=== PATIENT | male | born 1945 | race Caucasian/White ===

== ENCOUNTER 2016-07-30 08:10 | Emergency (ER) | payer OTHER ==
[~2016-07-30 08:10] MED LIST: AMARYL1 MG PO; BAYER ASPIRIN E81 M1 PO; CALAN SR240 MG PO; CARDIZEM C2 PO; CARVEDILOL12.5 MG PO; CELEBREX200 MG PO; COMBIVENT RESPIMAT IN; CYMBALTA60 MG PO; ISOSORBIDE MONO60 MG PO; LISINOPRIL10 MG PO; METFORMIN HCL500 MG PO; METHADONE HCL5 MG PO; NICOTINE T21 MG/24 H TOP; NORCO1 TA1 PO; NORVASC5 MG PO; OMEPRAZOLE20 M1 PO; TEMAZEPAM30 MG PO; VERAPAMIL HCL180 M4 PO
--- NOTE | 2016-07-30 09:22 | DIAGNOSTIC IMAGING REPORT ---
PROCEDURE: XR CHEST 1 VIEW INDICATION: HPYERTENSION TECHNIQUE: Portable AP view 09:06 a.m. COMPARISON: Chest x-ray 03/20/2016 FINDINGS: Minor left basilar scarring. Heart and mediastinum are normal. Thorax is normal. IMPRESSION: 1. No acute changes 2. Minor left basilar scarring.
--- NOTE | 2016-07-30 11:44 | DIAGNOSTIC IMAGING REPORT ---
PROCEDURE: US VENOUS - LEFT EXT INDICATION: PAIN TECHNIQUE: Duplex sonography of the deep venous system in the left lower extremity was performed. Compression and augmentation techniques were used. COMPARISON: None. FINDINGS: Each interrogated segment of deep vein from the common femoral vein into the calf veins demonstrates normal compressibility, augmentation and/or color Doppler flow without filling defect. No evidence of significant soft-tissue edema, soft-tissue mass or cyst. IMPRESSION: 1. No deep venous thrombosis in the left lower extremity.
--- NOTE | 2016-07-30 13:39 | ED ORDER SUMMARY ---
..... Patient: LILIAM MONTESINOS OrderSheet [facility] VisitID: [id number] [address] [place] [address] 71y, M Registration Date/Time: 07/30/2016 ORDER SHEET Weight: 97.0 kg (stated) Allergies: Bees, PCN GENERAL ORDERS: Chest 1V Urgent (08:51 07/30/2016 Hood SAMUEL) (Ack 8:59 KHoerner) (9:06 KHoerner) Vp Patient (Continuous) (08:51 07/30/2016 Hood SAMUEL) (Ack 8:59 KHoerner) (9:17 Zachariah R.N.) CBC w Diff Urgent (08:07/30/2016 Hood SAMUEL) (Ack 8:59 KHoerner) (9:17 Zachariah R.N.) CMP Urgent (08:07/30/2016 Hood SAMUEL) (Ack 8:59 KHoerner) (9:17 Zachariah R.N.) UA-Culture if indicated Urgent (08:52 07/30/2016 Hood SAMUEL) (Ack 8:59 KHoerner) PT with INR Urgent (08:52 07/30/2016 Hood SAMUEL) (Ack 8:59 KHoerner) (9:17 Zachariah R.N.) PTT Urgent (08:07/30/2016 Hood SAMUEL) (Ack 8:59 KHoerner) (9:17 Zachariah R.N.) Amylase Urgent (08:07/30/2016 Hood SAMUEL) (Ack 8:59 KHoerner) (9:17 Zachariah R.N.) Lipase Urgent (08:52 07/30/2016 Hood SAMUEL) (Ack 8:58 KHoerner) (9:17 Zachariah R.N.) D-Dimer Urgent (08:52 07/30/2016 Hood SAMUEL) (Ack 8:59 KHoerner) (9:17 Zachariah R.N.) CPK Urgent (08:52 07/30/2016 Hood SAMUEL) (Ack 8:59 KHoerner) (9:17 Zachariah R.N.) Troponin-I Urgent (08:52 07/30/2016 Hood SAMUEL) (Ack 8:59 JHONNYoergaurav) (9:17 Zachariah R.N.) Pulse oximeter (08:52 07/30/2016 Hood SAMUEL) (Ack 8:59 JHONNYoergaurav) (9:17 Zachariah R.N.) Oxygen (2 L/min) (NC) (08:52 07/30/2016 Hood SAMUEL) (Ack 8:59 Oleksandr) (9:17 Zachariah R.N.) EKG - ER Stat (08:52 07/30/2016 Hood SAMUEL) (8:53 LTapper) US Venous Left (Elevated D dimer) Urgent (11:16 07/30/2016 Marcel Wong) (Ack 11:18 Oleksandr) MEDICATION ORDERS: IV FLUIDS: IV NS : initial bolus 500 mL (1000 mL/hr), then 125 mL/hr for 4h (NOW); Urgent (08:47 07/30/2016 Hood SAMUEL) (Ack 9:16 Zachariah R.N.) (9:50 Zachariah R.N.) Dilaudid IV 1 mg (HIGH ALERT MEDICATION, NOW) (08:48 07/30/2016 Hood SAMUEL) (Ack 9:16 Zachariah R.N.) (9:51 Zachariah R.N.) Zofran IV 4 mg (NOW) (08:48 07/30/2016 Hood SAMUEL) (Ack 9:16 Zachariah R.N.) (9:51 Zachariah R.N.) Metoprolol IV 2.5 mg (HIGH ALERT MEDICATION, NOW) (08:49 07/30/2016 Hood SAMUEL) (Ack 9:16 Zachariah R.N.) (9:52 Zahcariah R.N.) IV Saline Lock (08:52 07/30/2016 Hood SAMUEL) (9:17 Zachariah R.N.) Metoprolol IV 2.5 mg (HIGH ALERT MEDICATION, NOW) (11:16 07/30/2016 Marcel Wong) (11:37 Liam R.N.) Reglan IV 10 mg (NOW) (11:07/30/2016 Marcel Wong) (11:38 Liam Irwin) Hydralazine IV 20 mg (HIGH ALERT MEDICATION, NOW) (12:28 07/30/2016 Marcel Wong) (12:38 Liam Irwin) ORDER SHEET NOTES: [Electronically signed by Brian Saldana R.N. (14:05 07/30/2016)] [Electronically signed by Jose Beth Dr. (21:40 07/30/2016)] [Electronically locked/signed by Brian Saldana R.N. (14:05 07/30/2016)]
--- NOTE | 2016-07-30 13:39 | ED NURSING NOTES ---
Clinical Report - Nurses [facility] [address] [place] [address] 07/30/2016 8:12 [id number] Triage time 08:23. Acuity: LEVEL 3. Chief Complaint: HEADACHE and (back pain). Alert. AVELINO COMA SCORE: [place] Coma Scale: 15- eyes open spontaneously (4); best verbal response- oriented x 4 (5); best motor response- obeys commands (6). --08:35 Beverly Jeffries R.N. 08:23 07/30/16. BP: 179/105. HR: 95. RR: 13. O2 saturation: 96%. Temp: 98.3 F (oral). Pain level now: 02/16. --08:35 Beverly Jeffries R.N. Weight: 97 kg stated. Height/Length: 68 inches Per Patient. BMI: 32.5. --08:26 Beverly Jeffries R.N. Medications Isosorbide Mononitrate ER Oral (Tablet Extended Release 24 Hour 60 mg) 1 tablet, daily. --08:28 Beverly Jeffries R.N. Lisinopril Oral 20 mg, daily. --08:28 Beverly Jeffries R.N. Omeprazole Oral 20 mg, daily. --08:29 Beverly Jeffries R.N. Glipizide Oral (Tablet 5 mg) 1/2 tablet, daily. --08:30 Beverly Jeffries R.N. Hydrocodone-Acetaminophen Oral (out). --08:31 Beverly Jeffries R.N. Metoprolol Tartrate Oral (Tablet 50 mg) 1 tablet, bid (out). --08:31 Beverly Jeffries R.N. Diltiazem HCl ER Oral (Capsule Extended Release 24 Hour 240 mg) 1 capsule, daily (out). --08:32 Beverly Jeffries R.N. Medication/allergy information source: the patient's pill bottles. --08:35 Mervin, Beverly, R.N. Allergies Bees. PCN. --08:25 Beverly Jeffries R.N. History Arrived by private vehicle. Historian: patient. Accompanied by friend. Primary physician (none). This started about 3 days. SOCIAL HX: Heavy tobacco smoker- less than 1 pack per day. History of drug use: marijuana. No alcohol use. LEARNING NEEDS ASSESSMENT: The learning needs assessment revealed no barriers. FALL RISK ASSESSMENT: Fall risk assessment completed. Risk factors identified include patient age greater than 65 years and impairment of mobility. Fall interventions initiated. Patient placed on stretcher. Side rails up x2. Brakes on Bed in low position. FUNCTIONAL ASSESSMENT: Functional assessment performed: independent with the activities of daily living; mobility impairment present- this mobility impairment is an ongoing problem. --08:35 Beverly Jeffries R.N. PROBLEMS: Pneumonia. Renal Insufficiency. Abrasion(s). Pancreatitis. GI Disease. Back Pain. Diverticulitis. Cholecystitis. Migraine Headache. Tension-Type Headache. Chronic Headache. Laceration. Syncope. Fractured Metacarpal. Bronchitis. COPD - Chronic Obstructive Pulmonary Disease. Hepatitis. Abdominal Pain. Asthma. Diabetes Mellitus. Hypertension. Lupus. Tuberculosis. --08:26 eBverly Jeffries R.N. Hepatic Encephalopathy [RuleOut]. Sleep Apnea [RuleOut]. --08:26 Beverly Jeffries R.N. ADDITIONAL SURGERIES: Carpal Tunnel Surgery. Cyst on back. Fracture Repair. Hernia Repair. Previous Abdominal Surgery. Right index finger surgery. Umbilical Hernia Repair. --08:26 Beverly Jeffries R.N. Assessment GENERAL / NEURO / PSYCH: The patient is awake and alert, is oriented and cooperative and appears uncomfortable. He has poor eye contact. RESPIRATORY: Respirations not labored. SKIN: Skin is warm and dry. --08:35 Beverly Jeffries R.N. Interventions ID and allergy band on patient. To treatment room. --08:35 Beverly Jeffries R.N. PHYSICAL ASSESSMENT 08:49 07/30/16. Ambulatory to room. Patient gowned. GENERAL / NEURO / PSYCH: The patient is awake and alert, is oriented and cooperative and appears uncomfortable. He has good eye contact. RESPIRATORY: Respirations not labored. SKIN: Skin is warm and dry. --08:49 Beverly Jeffries R.N. NURSING PROGRESS NOTES 08:50 07/30/16. regional cra, pulse oximeter and NIBP monitor placed on patient. Patient gowned. Head of bed elevated. Call light placed in reach. Side rails up x 1. Bed placed in lowest position. Brakes of bed on. --08:50 Beverly Jeffries R.N. EKG time: (0835). EKG was ordered, performed by a tech and shown to the ED physician. --08:52 Laisha Dunn, FATUMA Tech1 09:02 07/30/2016 Site #1 started via IV in the right forearm with an 20g angiocath, with aseptic technique and good blood return; one attempt. Blood drawn: rainbow set. Labeled in the presence of the patient and sent to the lab. Saline lock flushed with 10 mL saline. --09:17 Beverly Jeffries R.N. 09:35 07/30/2016 Started bag #1 1000 mL IV Fluids IV NS (Saline); at 1000 mL/hr over 30 minute(s) via site #1 via IV pump. --09:50 Beverly Jeffries R.N. 09:41 07/30/2016 Zofran (Ondansetron HCl) IVP 4 mg given over 2 minute(s) via site #1. Allergies verified and confirmed 5 rights. IV patency established. IV site checked: no pain, redness, or swelling. IV flushed thoroughly pre- and post-medication administration. IVP given by RN. --09:51 Beverly Jeffries R.N. 09:41 07/30/2016 Dilaudid (HYDROmorphone HCl PF) IVP 1 mg given over 2 minute(s) via site #1. Allergies verified, confirmed 5 rights and sedative warning given to the patient. IV patency established. IV site checked: no pain, redness, or swelling. IV flushed thoroughly pre- and post-medication administration. IVP given by RN. --09:51 Beverly Jeffries R.N. 09:47 07/30/2016 Metoprolol (Metoprolol Tartrate) IVP 2.5 mg given over 5 minute(s) via site #1. Allergies verified and confirmed 5 rights. IV patency established. IV site checked: no pain, redness, or swelling. IV flushed thoroughly pre- and post-medication administration. IVP given by RN. --09:52 Beverly Jeffries R.N. 09:35 07/30/16. BP: 173/107. Pain level now: 02/16. --10:10 Beverly Jeffries R.N. 10:11 07/30/16. BP: 163/89. HR: 72. RR: 18. O2 saturation: 98% on nasal cannula at 2 liters/minute. Pain level now: 01/16. --10:13 Beverly Jeffries R.N. 10:13 07/30/16. Cardiac rhythm: sinus rhythm. Reassessment after fluids administered and medication administered. He is resting quietly. Overall patient status is improved- he states feels better. GENERAL / NEURO / PSYCH: Alert. Oriented X 4. RESPIRATORY: No respiratory distress. SKIN: Skin is warm and dry. --10:13 Beverly Jeffries R.N. 10:18 07/30/16. BP: 163/89. HR: 73. O2 saturation: 98%. --10:18 Brian Saldana R.N. 11:37 07/30/2016 Metoprolol (Metoprolol Tartrate) IVP 2.5 mg given over 5 minute(s) via site #1. Allergies verified and confirmed 5 rights. IV patency established. IV site checked: no pain, redness, or swelling. IV flushed thoroughly pre- and post-medication administration. IVP given by RN. --11:37 Brian Saldana R.N. 11:37 07/30/2016 Reglan (Metoclopramide HCl) IVP 10 mg given over 2 minute(s) via site #1. Allergies verified and confirmed 5 rights. IV patency established. IV site checked: no pain, redness, or swelling. IV flushed thoroughly pre- and post-medication administration. IVP given by RN. --11:38 Brian Saldana R.N. 11:48 07/30/16. BP: 184/96. --11:48 Brian Saldana R.N. 12:23 07/30/16. BP: 205/108. HR: 67. O2 saturation: 99%. --12:24 Brian Saldana R.N. 12:38 07/30/2016 Hydralazine IVP 20 mg given over 3 minute(s) via site #1. Allergies verified and confirmed 5 rights. IV patency established. IV site checked: no pain, redness, or swelling. IV flushed thoroughly pre- and post-medication administration. IVP given by RN. --12:38 Brian Saldana R.N. DISPOSITION / DISCHARGE 13:35 07/30/16. BP: 154/70. HR: 81. RR: 20. O2 saturation: 100%. Temp: 98.1 F. Pain level now 09/16. --13:35 Brian Saldana R.N. 13:49 07/30/2016 Site #1 removed upon discharge. Bandaid applied. --13:49 Brian Saldana R.N. No learning barriers present. Discharge instructions provided and reviewed with the patient. Reviewed warnings. Reviewed medication(s). Treatments reviewed. Reviewed referrals. Patient verbalized understanding. Written instructions provided in Thai. The patient was discharged by the physician. He was discharged home and accompanied by family. He left the Emergency Department ambulatory and via private vehicle. Family member driving. --13:49 Brian Saldana R.N. Departure time: 1345. --13:49 Brian Saldana R.N. Locked/Released at 07/30/2016 14:05 by Brian Saldana R.N.
--- NOTE | 2016-07-30 13:39 | ED NURSING NOTES ---
Clinical Report - Nurses [facility] [address] [place] [address] 07/30/2016 8:12 [id number] Triage time 08:23. Acuity: LEVEL 3. Chief Complaint: HEADACHE and (back pain). Alert. AVELINO COMA SCORE: [place] Coma Scale: 15- eyes open spontaneously (4); best verbal response- oriented x 4 (5); best motor response- obeys commands (6). --08:35 Beverly Jeffries R.N. 08:23 07/30/16. BP: 179/105. HR: 95. RR: 13. O2 saturation: 96%. Temp: 98.3 F (oral). Pain level now: 02/16. --08:35 Beverly Jeffries R.N. Weight: 97 kg stated. Height/Length: 68 inches Per Patient. BMI: 32.5. --08:26 Beverly Jeffries R.N. Medications Isosorbide Mononitrate ER Oral (Tablet Extended Release 24 Hour 60 mg) 1 tablet, daily. --08:28 Beverly Jeffries R.N. Lisinopril Oral 20 mg, daily. --08:28 Beverly Jeffries R.N. Omeprazole Oral 20 mg, daily. --08:29 Beverly Jeffries R.N. Glipizide Oral (Tablet 5 mg) 1/2 tablet, daily. --08:30 Beverly Jeffries R.N. Hydrocodone-Acetaminophen Oral (out). --08:31 Beverly Jeffries R.N. Metoprolol Tartrate Oral (Tablet 50 mg) 1 tablet, bid (out). --08:31 Beverly Jeffries R.N. Diltiazem HCl ER Oral (Capsule Extended Release 24 Hour 240 mg) 1 capsule, daily (out). --08:32 Beverly Jeffries R.N. Medication/allergy information source: the patient's pill bottles. --08:35 Mervin, Beverly, R.N. Allergies Bees. PCN. --08:25 Beverly Jeffries R.N. History Arrived by private vehicle. Historian: patient. Accompanied by friend. Primary physician (none). This started about 3 days. SOCIAL HX: Heavy tobacco smoker- less than 1 pack per day. History of drug use: marijuana. No alcohol use. LEARNING NEEDS ASSESSMENT: The learning needs assessment revealed no barriers. FALL RISK ASSESSMENT: Fall risk assessment completed. Risk factors identified include patient age greater than 65 years and impairment of mobility. Fall interventions initiated. Patient placed on stretcher. Side rails up x2. Brakes on Bed in low position. FUNCTIONAL ASSESSMENT: Functional assessment performed: independent with the activities of daily living; mobility impairment present- this mobility impairment is an ongoing problem. --08:35 Beverly Jeffries R.N. PROBLEMS: Pneumonia. Renal Insufficiency. Abrasion(s). Pancreatitis. GI Disease. Back Pain. Diverticulitis. Cholecystitis. Migraine Headache. Tension-Type Headache. Chronic Headache. Laceration. Syncope. Fractured Metacarpal. Bronchitis. COPD - Chronic Obstructive Pulmonary Disease. Hepatitis. Abdominal Pain. Asthma. Diabetes Mellitus. Hypertension. Lupus. Tuberculosis. --08:26 Beverly Jeffries R.N. Hepatic Encephalopathy [RuleOut]. Sleep Apnea [RuleOut]. --08:26 Beverly Jeffries R.N. ADDITIONAL SURGERIES: Carpal Tunnel Surgery. Cyst on back. Fracture Repair. Hernia Repair. Previous Abdominal Surgery. Right index finger surgery. Umbilical Hernia Repair. --08:26 Beverly Jeffries R.N. Assessment GENERAL / NEURO / PSYCH: The patient is awake and alert, is oriented and cooperative and appears uncomfortable. He has poor eye contact. RESPIRATORY: Respirations not labored. SKIN: Skin is warm and dry. --08:35 Beverly Jeffries R.N. Interventions ID and allergy band on patient. To treatment room. --08:35 Beverly Jeffries R.N. PHYSICAL ASSESSMENT 08:49 07/30/16. Ambulatory to room. Patient gowned. GENERAL / NEURO / PSYCH: The patient is awake and alert, is oriented and cooperative and appears uncomfortable. He has good eye contact. RESPIRATORY: Respirations not labored. SKIN: Skin is warm and dry. --08:49 Beverly Jeffries R.N. NURSING PROGRESS NOTES 08:50 07/30/16. laborer/grade check, pulse oximeter and NIBP monitor placed on patient. Patient gowned. Head of bed elevated. Call light placed in reach. Side rails up x 1. Bed placed in lowest position. Brakes of bed on. --08:50 Beverly Jeffries R.N. EKG time: (0835). EKG was ordered, performed by a tech and shown to the ED physician. --08:52 Laisha Dunn, FATUMA Tech1 09:02 07/30/2016 Site #1 started via IV in the right forearm with an 20g angiocath, with aseptic technique and good blood return; one attempt. Blood drawn: rainbow set. Labeled in the presence of the patient and sent to the lab. Saline lock flushed with 10 mL saline. --09:17 Beverly Jeffries R.N. 09:35 07/30/2016 Started bag #1 1000 mL IV Fluids IV NS (Saline); at 1000 mL/hr over 30 minute(s) via site #1 via IV pump. --09:50 Beverly Jeffries R.N. 09:41 07/30/2016 Zofran (Ondansetron HCl) IVP 4 mg given over 2 minute(s) via site #1. Allergies verified and confirmed 5 rights. IV patency established. IV site checked: no pain, redness, or swelling. IV flushed thoroughly pre- and post-medication administration. IVP given by RN. --09:51 Beverly Jeffries R.N. 09:41 07/30/2016 Dilaudid (HYDROmorphone HCl PF) IVP 1 mg given over 2 minute(s) via site #1. Allergies verified, confirmed 5 rights and sedative warning given to the patient. IV patency established. IV site checked: no pain, redness, or swelling. IV flushed thoroughly pre- and post-medication administration. IVP given by RN. --09:51 Beverly Jeffries R.N. 09:47 07/30/2016 Metoprolol (Metoprolol Tartrate) IVP 2.5 mg given over 5 minute(s) via site #1. Allergies verified and confirmed 5 rights. IV patency established. IV site checked: no pain, redness, or swelling. IV flushed thoroughly pre- and post-medication administration. IVP given by RN. --09:52 Beverly Jeffries R.N. 09:35 07/30/16. BP: 173/107. Pain level now: 02/16. --10:10 Beverly Jeffries R.N. 10:11 07/30/16. BP: 163/89. HR: 72. RR: 18. O2 saturation: 98% on nasal cannula at 2 liters/minute. Pain level now: 01/16. --10:13 Beverly Jeffries R.N. 10:13 07/30/16. Cardiac rhythm: sinus rhythm. Reassessment after fluids administered and medication administered. He is resting quietly. Overall patient status is improved- he states feels better. GENERAL / NEURO / PSYCH: Alert. Oriented X 4. RESPIRATORY: No respiratory distress. SKIN: Skin is warm and dry. --10:13 Beverly Jeffries R.N. 10:18 07/30/16. BP: 163/89. HR: 73. O2 saturation: 98%. --10:18 Brian Saldana R.N. 11:37 07/30/2016 Metoprolol (Metoprolol Tartrate) IVP 2.5 mg given over 5 minute(s) via site #1. Allergies verified and confirmed 5 rights. IV patency established. IV site checked: no pain, redness, or swelling. IV flushed thoroughly pre- and post-medication administration. IVP given by RN. --11:37 Brian Saldana R.N. 11:37 07/30/2016 Reglan (Metoclopramide HCl) IVP 10 mg given over 2 minute(s) via site #1. Allergies verified and confirmed 5 rights. IV patency established. IV site checked: no pain, redness, or swelling. IV flushed thoroughly pre- and post-medication administration. IVP given by RN. --11:38 Brian Saldana R.N. 11:48 07/30/16. BP: 184/96. --11:48 Brian Saldana R.N. 12:23 07/30/16. BP: 205/108. HR: 67. O2 saturation: 99%. --12:24 Brian Saldana R.N. 12:38 07/30/2016 Hydralazine IVP 20 mg given over 3 minute(s) via site #1. Allergies verified and confirmed 5 rights. IV patency established. IV site checked: no pain, redness, or swelling. IV flushed thoroughly pre- and post-medication administration. IVP given by RN. --12:38 Brian Saldana R.N. DISPOSITION / DISCHARGE 13:35 07/30/16. BP: 154/70. HR: 81. RR: 20. O2 saturation: 100%. Temp: 98.1 F. Pain level now 09/16. --13:35 Brian Saldana R.N. 13:49 07/30/2016 Site #1 removed upon discharge. Bandaid applied. --13:49 Brian Saldana R.N. No learning barriers present. Discharge instructions provided and reviewed with the patient. Reviewed warnings. Reviewed medication(s). Treatments reviewed. Reviewed referrals. Patient verbalized understanding. Written instructions provided in Upper Sorbian. The patient was discharged by the physician. He was discharged home and accompanied by family. He left the Emergency Department ambulatory and via private vehicle. Family member driving. --13:49 Brian Saldana R.N. Departure time: 1345. --13:49 Brian Saldana R.N. Locked/Released at 07/30/2016 14:05 by Brian Saldana R.N.
--- NOTE | 2016-07-30 13:39 | ED ORDER SUMMARY ---
..... Patient: LILIAM MONTESINOS OrderSheet [facility] VisitID: [id number] [address] [place] [address] 71y, M Registration Date/Time: 07/30/2016 ORDER SHEET Weight: 97.0 kg (stated) Allergies: Bees, PCN GENERAL ORDERS: Chest 1V Urgent (08:51 07/30/2016 Hood SAMUEL) (Ack 8:59 KHoerner) (9:06 KHoerner) Insurance Solicitor (Continuous) (08:51 07/30/2016 Hood SAMUEL) (Ack 8:59 KHoerner) (9:17 Zachariah R.N.) CBC w Diff Urgent (08:07/30/2016 Hood SAMUEL) (Ack 8:59 KHoerner) (9:17 Zachariah R.N.) CMP Urgent (08:07/30/2016 Hood SAMUEL) (Ack 8:59 KHoerner) (9:17 Zachariah R.N.) UA-Culture if indicated Urgent (08:52 07/30/2016 Hood SAMUEL) (Ack 8:59 KHoerner) PT with INR Urgent (08:52 07/30/2016 Hood SAMUEL) (Ack 8:59 KHoerner) (9:17 Zachariah R.N.) PTT Urgent (08:07/30/2016 Hood SAMUEL) (Ack 8:59 KHoerner) (9:17 Zachariah R.N.) Amylase Urgent (08:07/30/2016 Hood SAMUEL) (Ack 8:59 KHoerner) (9:17 Zachariah R.N.) Lipase Urgent (08:52 07/30/2016 Hood SAMUEL) (Ack 8:58 KHoerner) (9:17 Zachariah R.N.) D-Dimer Urgent (08:52 07/30/2016 Hood SAMUEL) (Ack 8:59 KHoerner) (9:17 Zachariah R.N.) CPK Urgent (08:52 07/30/2016 Hood SAMUEL) (Ack 8:59 KHoerner) (9:17 Zachariah R.N.) Troponin-I Urgent (08:52 07/30/2016 Hood SAMUEL) (Ack 8:59 JHONNYoergaurav) (9:17 Zachariah R.N.) Pulse oximeter (08:52 07/30/2016 Hood SAMUEL) (Ack 8:59 JHONNYoergaurav) (9:17 Zachariah R.N.) Oxygen (2 L/min) (NC) (08:52 07/30/2016 Hood SAMUEL) (Ack 8:59 Oleksandr) (9:17 Zachariah R.N.) EKG - ER Stat (08:52 07/30/2016 Hood SAMUEL) (8:53 LTapper) US Venous Left (Elevated D dimer) Urgent (11:16 07/30/2016 Marcel Wong) (Ack 11:18 Oleksandr) MEDICATION ORDERS: IV FLUIDS: IV NS : initial bolus 500 mL (1000 mL/hr), then 125 mL/hr for 4h (NOW); Urgent (08:47 07/30/2016 Hood SAMUEL) (Ack 9:16 Zachariah R.N.) (9:50 Zachariah R.N.) Dilaudid IV 1 mg (HIGH ALERT MEDICATION, NOW) (08:48 07/30/2016 Hood SAMUEL) (Ack 9:16 Zachariah R.N.) (9:51 Zachariah R.N.) Zofran IV 4 mg (NOW) (08:48 07/30/2016 Hood SAMUEL) (Ack 9:16 Zachariah R.N.) (9:51 Zachariah R.N.) Metoprolol IV 2.5 mg (HIGH ALERT MEDICATION, NOW) (08:49 07/30/2016 Hood SAMUEL) (Ack 9:16 Zachariah R.N.) (9:52 Zachariah R.N.) IV Saline Lock (08:52 07/30/2016 Hood SAMUEL) (9:17 Zachariah R.N.) Metoprolol IV 2.5 mg (HIGH ALERT MEDICATION, NOW) (11:16 07/30/2016 Marcel Wong) (11:37 Liam R.N.) Reglan IV 10 mg (NOW) (11:07/30/2016 Marcel Wong) (11:38 Liam Irwin) Hydralazine IV 20 mg (HIGH ALERT MEDICATION, NOW) (12:28 07/30/2016 Marcel Wong) (12:38 Liam Irwin) ORDER SHEET NOTES: [Electronically signed by Brian Saldana R.N. (14:05 07/30/2016)] [Electronically signed by Jose Beth Dr. (21:40 07/30/2016)] [Electronically locked/signed by Brian Saldana R.N. (14:05 07/30/2016)]
--- NOTE | 2016-07-30 13:39 | ED CLINICAL REPORT ---
Clinical Report - Physicians/Mid Levels [facility] [address] [place] [address] 07/30/2016 8:12 Patient: LILIAM MONTESINOS [facility]#: [id number] Time Seen: 08:43. Arrived- By private vehicle. Historian- patient. HISTORY OF PRESENT ILLNESS Is still present. Chief Complaint: HEADACHE. This started several days ago. It has been intermittent and waxing/waning. Onset during light activity. It is described as throbbing. Quality described as unlike previous headaches. Located in the frontal region. No neck pain. Not located in the facial region. At its maximum, severity described as 10 / 10. When seen in the E.D., severity described as 10 / 10. Modifying factors: worsened by bright light; relieved by nothing. There were preceding symptoms. He has had blurred vision in the right eye and left eye. The blurred vision involving the right eye has been mild. The blurred vision involving the left eye has been mild. He has had photophobia. No associated nausea, numbness, weakness or vomiting. (Out of HTN meds for weeks). Similar symptoms previously: Many times. Recent medical care: Not recently seen/assessed. REVIEW OF SYSTEMS The patient has had tinnitus (chronically). He has had lower back pain with radiation to the left leg. he has had 1 month of L thigh pain and tenderness. All systems otherwise negative, except as recorded above. PAST HISTORY Pneumonia. Renal Insufficiency. Abrasion(s). Pancreatitis. GI Disease. Back Pain. Diverticulitis. Cholecystitis. Migraine Headache. Tension-Type Headache. Chronic Headache. Laceration. Syncope. Fractured Metacarpal. Bronchitis. COPD - Chronic Obstructive Pulmonary Disease. Hepatitis. Abdominal Pain. Asthma. Diabetes Mellitus. Hypertension. Lupus. Tuberculosis. --08: Beverly Jeffries R.N. Hepatic Encephalopathy [RuleOut]. Sleep Apnea [RuleOut]. --08: Beverly Jeffries R.N. ADDITIONAL SURGERIES: Carpal Tunnel Surgery. Cyst on back. Fracture Repair. Hernia Repair. Previous Abdominal Surgery. Right index finger surgery. Umbilical Hernia Repair. Medications: Diltiazem HCl ER Oral (Capsule Extended Release 24 Hour 240 mg) 1 capsule, daily (out). Metoprolol Tartrate Oral (Tablet 50 mg) 1 tablet, bid (out). Hydrocodone-Acetaminophen Oral (out). Glipizide Oral (Tablet 5 mg) 1/2 tablet, daily. Omeprazole Oral 20 mg, daily. Lisinopril Oral 20 mg, daily. Isosorbide Mononitrate ER Oral (Tablet Extended Release 24 Hour 60 mg) 1 tablet, daily. Allergies: Bees. PCN. SOCIAL HISTORY Current every day heavy tobacco smoker (cigarette)- less than 1 pack per day. Occasional alcohol use. History of occasional drug use: marijuana. FAMILY HISTORY Cancer in first-degree relative (mother and father). ADDITIONAL NOTES The nursing notes have been reviewed. PHYSICAL EXAM Vital Signs: 07/30/2016 08:23 BP: 179/105. HR: 95. RR: 13. O2 saturation: 96%. Temp: 98.3 F. Pain level now: 9/10. Have been reviewed. Appearance: Alert. Eyes: Pupils equal, round and reactive to light. Eyes normal inspection. No abnormal funduscopic findings. ENT: Pharynx normal. Neck: Normal inspection. Neck supple. No meningeal signs or carotid bruit. CVS: Normal heart rate and rhythm. Heart sounds normal. Respiratory: No respiratory distress. Decreased air movement. Abdomen: Soft and nontender. No organomegaly. Back: Normal inspection. Skin: Skin warm and dry. Normal skin color. Normal skin turgor. Extremities: Extremities exhibit normal ROM. No calf tenderness. No lower extremity edema. (L femoral region tenderness). Neuro: Alert. No cerebellar findings. No motor deficit. No sensory deficit. LABS, X-RAYS, AND EKG EKG: Rate: 103. Right axis deviation. Changes present when compared to prior EKG. (01 Feb 2016). The study has been independently viewed by me. Chest X-ray: No acute disease. Normal heart size. Mediastinum normal. Great vessels normal. No infiltrate. Views: AP. Technique: good. The X-rays were independently viewed by me and interpreted contemporaneously by me. Prior films were not available for comparison. Lower Extremity Sonography: Negative exam. No compression abnormality noted. . No deep venous thrombosis in the left lower extremity. The exam was performed by a bone density technician. The study was interpreted by the radiologist and discussed with the radiologist. Prior studies were not available for comparison. Laboratory Tests: CBC w Diff: (RENÉ: 07/30/2016 08:40) ( MsgRcvd 07/30/2016 09:02) Final results Test Result Flag Units (Reference) WHITE BLOOD COUNT 10.8 K/uL (4.5-11.5) RED BLOOD COUNT 4.83 M/uL (4.50-5.90) HEMOGLOBIN 13.5 gm/dL (13.5-17.5) HEMATOCRIT 40.4 L % (41.0-53.0) MEAN CELL VOLUME 84 fL (80-100) MEAN CORPUSCULAR HGB 28 pg (26-34) MEAN CORPUSCULAR HGB CONC 33 g/dL (31-37) RED CELL DISTRIBUTION WIDTH 14.2 % (11.6-14.8) PLATELET COUNT 312 K/uL (150-400) NEUTROPHIL % 57.6 % (50-75) LYMPH % 27.6 % (25-40) MONO % 13.4 % (3-14) EOSINOPHIL % 0.9 % (0-4) BASOPHIL % 0.5 % (0-2) PT with INR: (RENÉ: 07/30/2016 08:40) ( MsgRcvd 07/30/2016 09:11) Final results Test Result Flag Units (Reference) INR 1.0 (0.8-1.2) Low Intensity Therapy: INR 1.5-2.0 PT range 18.5-23.1Mod.Intensity Therapy: INR 2.0-3.0 PT range 23.1-31.5High Intensity Therapy: INR 2.5-3.5 PT range 27.4-35.5High Intensity Therapy 2: INR 3.0-4.0 PT range 31.5-39.3 APTT 30 SECONDS (24-34) D-DIMER QUANTITATIVE 0.55 H ug/mLFEU (0.27-0.52) The primary value of this quantitative assay relates toits negative predictive value (i.e. exclusion) of pulmonaryembolism/deep vein thrombosis/DIC.Elevated levels of d-dimer may also occur with:, age, cancer, inflammation, liver disease,post-op, infection, hematoma, coronary disease, peripheralarteriopathy, bleeding disorders and thrombolytic treatment.Results should be correlated with other clinical andradiological data.Testing Methodology: Latex Immunoassay CMP: (RENÉ: 07/30/2016 08:40) ( MsgRcvd 07/30/2016 09:14) Final results Test Result Flag Units (Reference) GLUCOSE 102 mg/dL (70-110) BUN 55 H mg/dL (7-18) CREATININE 2.1 H mg/dL (0.6-1.3) Estimated GFR 33.45 mL/min Estimated GFR- 40.54 mL/min Note: Persistent reduction over 3 months in eGFR<60 mL/min/1.73 m2 defines CKD. Patients with eGFR values>=60 mL/min/1.73 m2 may also have CKD if evidence ofpersistent proteinuria. Additional information may be foundat [email or web address].org. SODIUM 140 mmol/L (136-145) POTASSIUM 4.3 mmol/L (3.5-5.1) CHLORIDE 106 mmol/L (98-107) CARBON DIOXIDE 22 mmol/L (21-32) CALCIUM 9.2 mg/dL (8.5-10.1) TOTAL PROTEIN 7.7 g/dL (6.4-8.2) ALBUMIN 2.7 L g/dL (3.3-5.0) BILIRUBIN, TOTAL 0.4 mg/dL (0.0-1.0) ALKALINE PHOSPHATASE 94 U/L (46-116) AST (SGOT) 29 U/L (15-37) ALT (SGPT) 49 U/L (12-78) LIPASE 297 U/L (73-393) AMYLASE 93 U/L (25-115) CPK 42 U/L (24-260) TROPONIN I <0.05 ng/mL (0.00-1.5) TROPONIN REFERENCE RANGE:<0.1 NEGATIVE0.1-1.5 INDETERMINANT>1.5 POSITIVE . PROGRESS AND PROCEDURES Course of Care: 09:04 07/30/16. case was discussed with Dr. Bteh at change of shift we reviewed the patient's history and examination findings as well a the result of his EKG. Dr. Beth will follow up on his pending studies, continue to manage his care and will arrange an appropriate disposition for him. - MW Hydralazine 20 mg IVP given. Reglan 10 mg IVP given. Physical exam findings are improved. Symptoms much better. Disposition: Discharged home in good and improved condition. Condition: good. CLINICAL IMPRESSION Hypertensive headache Muscle strain of the left quadriceps. Essential hypertension. INSTRUCTIONS Avoid alcohol and NSAIDS. Examples of NSAIDS include aspirin, ibuprofen (Advil) and naproxen (Aleve). Avoid salty foods. Follow a low salt diet. Your Current Medications: CONTINUE TAKING THE FOLLOWING MEDICATIONS: Diltiazem HCl ER Oral : Capsule Extended Release 24 Hour 240 mg, 1 capsule daily, out. Glipizide Oral : Tablet 5 mg, 1/2 tablet daily. Hydrocodone-Acetaminophen Oral : out. Isosorbide Mononitrate ER Oral : Tablet Extended Release 24 Hour 60 mg, 1 tablet daily. Lisinopril Oral : 20 mg daily. Metoprolol Tartrate Oral : Tablet 50 mg, 1 tablet bid, out. Omeprazole Oral : 20 mg daily. Prescription Medications: Isosorbide Mononitrate ER 60 mg: take 1 tablet orally every 24 hours. Dispense fifteen (15). No refills. Tramadol 50 mg: take 1 orally every 6 hours as needed for pain and stiffness. Do not take more than 8 tablets in a 24 hour period. Dispense twenty (20). No refills. Diltiazem 240 mg: take 1 orally every 24 hours. Dispense fifteen (15). No refills. Glipizide 5 mg: take 1 orally every 24 hours. Dispense fifteen (15). No refills. Follow-up: Blood pressure screening was not performed during this visit because the patient has an active diagnosis of hypertension. The patient should follow up with a primary care provider for blood pressure management. Follow-up with: [facility], [facility], , [address] [place] [address], [address] [place] [address] Follow up in about two days. Call for an appointment. (Electronically signed by Jose Beth Dr. 07/30/2016 21:40)
--- NOTE | 2016-07-30 21:41 | ED MED RECONCILIATION SUMMARY ---
Patient: LILIAM MONTESINOS Medication Reconciliation Report [facility] VisitID: [id number] [place] [address] 71y, M Registration Date/Time: 07/30/2016 Weight: 97.0 kg Height/Length: 68 in. BMI: 32.5 ALLERGIES: Bees, PCN The patient's Home Medications are listed below: CONTINUE TAKING THE FOLLOWING MEDICATIONS: Diltiazem HCl ER Oral (240 mg) 1 capsule, daily, out Glipizide Oral (5 mg) 1/2 tablet, daily Hydrocodone-Acetaminophen Oral, out Isosorbide Mononitrate ER Oral (60 mg) 1 tablet, daily Lisinopril Oral 20 mg, daily Metoprolol Tartrate Oral (50 mg) 1 tablet, bid, out Omeprazole Oral 20 mg, daily The source(s) of the original Home Medication information: patient's pill bottles The following Medications were given to the patient in the Emergency Department: IV NS IV Fluids bolus 0, then 1000 mL/hr, administered: 07/30/2016 9:35:00 AM Zofran [IVP] IVP 4 mg, administered: 07/30/2016 9:41:00 AM Dilaudid [IVP] IVP 1 mg, administered: 07/30/2016 9:41:00 AM Metoprolol [IVP] IVP 2.5 mg, administered: 07/30/2016 9:47:00 AM Metoprolol [IVP] IVP 2.5 mg, administered: 07/30/2016 11:37:00 AM Reglan [IVP] IVP 10 mg, administered: 07/30/2016 11:37:00 AM Hydralazine [IVP] IVP 20 mg, administered: 07/30/2016 12:38:00 PM The following Medications were prescribed to the patient: Isosorbide Mononitrate ER 60 mg: take 1 tablet orally every 24 hours. Dispense fifteen (15). No refills. -- Jose Beth Dr. Tramadol 50 mg: take 1 orally every 6 hours as needed for pain and stiffness. Do not take more than 8 tablets in a 24 hour period. Dispense twenty (20). No refills. -- Jose Beth Dr. Diltiazem 240 mg: take 1 orally every 24 hours. Dispense fifteen (15). No refills. -- Jose Beth Dr. Glipizide 5 mg: take 1 orally every 24 hours. Dispense fifteen (15). No refills. -- Jose Beth Dr.
--- NOTE | 2016-07-30 21:41 | ED MAR SUMMARY ---
..... Medication Administration Record [facility] [address] [place] [address] Patient: LILIAM MONTESINOS Visit ID: [id number] 71y, M Weight: 97.0 kg Height/Length: 68 in BMI: 32.5 ALLERGIES: Bees, PCN Start 09:35 07/30/2016 Beverly Jeffries R.N. Medication Administered: IV NS (SALINE), Dose: IV Fluids over 30 minute(s), Rate: 1000 mL/hr, Dispensed: 1000 mL bag, Site: #1 right forearm. Medication Ordered: IV NS : initial bolus 500 mL (1000 mL/hr), then 125 mL/hr for 4h (NOW); Urgent. Given 09:07/30/2016 Beverly Jeffries R.N. Medication Administered: DILAUDID [IVP] (HYDROMORPHONE HCL PF), Dose: 1 mg IVP over 2 minute(s), Site: #1 right forearm. Medication Ordered: Dilaudid IV 1 mg (HIGH ALERT MEDICATION, NOW). Given :07/30/2016 Beverly Jeffries R.N. Medication Administered: ZOFRAN [IVP] (ONDANSETRON HCL), Dose: 4 mg IVP over 2 minute(s), Site: #1 right forearm. Medication Ordered: Zofran IV 4 mg (NOW). Given 09:07/30/2016 Beverly Jeffries R.N. Medication Administered: METOPROLOL [IVP] (METOPROLOL TARTRATE), Dose: 2.5 mg IVP over 5 minute(s), Site: #1 right forearm. Medication Ordered: Metoprolol IV 2.5 mg (HIGH ALERT MEDICATION, NOW). Given :07/30/2016 Brian Saldana R.N. Medication Administered: METOPROLOL [IVP] (METOPROLOL TARTRATE), Dose: 2.5 mg IVP over 5 minute(s), Site: #1 right forearm. Medication Ordered: Metoprolol IV 2.5 mg (HIGH ALERT MEDICATION, NOW). Given 07/30/2016 Brian Saldana R.N. Medication Administered: REGLAN [IVP] (METOCLOPRAMIDE HCL), Dose: 10 mg IVP over 2 minute(s), Site: #1 right forearm. Medication Ordered: Reglan IV 10 mg (NOW). Given 12:38 07/30/2016 Brian Saldana R.N. Medication Administered: HYDRALAZINE [IVP], Dose: 20 mg IVP over 3 minute(s), Site: #1 right forearm. Medication Ordered: Hydralazine IV 20 mg (HIGH ALERT MEDICATION, NOW).
--- NOTE | 2016-07-30 21:41 | ED MAR SUMMARY ---
..... Medication Administration Record [facility] [address] [place] [address] Patient: LILIAM MONTESINOS Visit ID: [id number] 71y, M Weight: 97.0 kg Height/Length: 68 in BMI: 32.5 ALLERGIES: Bees, PCN Start 09:35 07/30/2016 Beverly Jeffries R.N. Medication Administered: IV NS (SALINE), Dose: IV Fluids over 30 minute(s), Rate: 1000 mL/hr, Dispensed: 1000 mL bag, Site: #1 right forearm. Medication Ordered: IV NS : initial bolus 500 mL (1000 mL/hr), then 125 mL/hr for 4h (NOW); Urgent. Given 09:07/30/2016 Beverly Jeffries R.N. Medication Administered: DILAUDID [IVP] (HYDROMORPHONE HCL PF), Dose: 1 mg IVP over 2 minute(s), Site: #1 right forearm. Medication Ordered: Dilaudid IV 1 mg (HIGH ALERT MEDICATION, NOW). Given :07/30/2016 Beverly Jeffries R.N. Medication Administered: ZOFRAN [IVP] (ONDANSETRON HCL), Dose: 4 mg IVP over 2 minute(s), Site: #1 right forearm. Medication Ordered: Zofran IV 4 mg (NOW). Given 09:07/30/2016 Beverly Jeffries R.N. Medication Administered: METOPROLOL [IVP] (METOPROLOL TARTRATE), Dose: 2.5 mg IVP over 5 minute(s), Site: #1 right forearm. Medication Ordered: Metoprolol IV 2.5 mg (HIGH ALERT MEDICATION, NOW). Given :07/30/2016 Brian Saldana R.N. Medication Administered: METOPROLOL [IVP] (METOPROLOL TARTRATE), Dose: 2.5 mg IVP over 5 minute(s), Site: #1 right forearm. Medication Ordered: Metoprolol IV 2.5 mg (HIGH ALERT MEDICATION, NOW). Given 07/30/2016 Brian Saldana R.N. Medication Administered: REGLAN [IVP] (METOCLOPRAMIDE HCL), Dose: 10 mg IVP over 2 minute(s), Site: #1 right forearm. Medication Ordered: Reglan IV 10 mg (NOW). Given 12:38 07/30/2016 Brian Saldana R.N. Medication Administered: HYDRALAZINE [IVP], Dose: 20 mg IVP over 3 minute(s), Site: #1 right forearm. Medication Ordered: Hydralazine IV 20 mg (HIGH ALERT MEDICATION, NOW).
--- NOTE | 2016-07-30 21:41 | ED DISCHARGE INSTRUCTIONS ---
Patient: LILIAM MONTESINOS General Instructions [facility] VisitID: [id number] [place] [address] 71y, M Registration Date/Time: 07/30/2016 Hypertensive headache Muscle strain of the left quadriceps. Essential hypertension. INSTRUCTIONS Avoid alcohol and NSAIDS. Examples of NSAIDS include aspirin, ibuprofen (Advil) and naproxen (Aleve). Avoid salty foods. Follow a low salt diet. Your Current Medications: CONTINUE TAKING THE FOLLOWING MEDICATIONS: Diltiazem HCl ER Oral : Capsule Extended Release 24 Hour 240 mg, 1 capsule daily, out. Glipizide Oral : Tablet 5 mg, 1/2 tablet daily. Hydrocodone-Acetaminophen Oral : out. Isosorbide Mononitrate ER Oral : Tablet Extended Release 24 Hour 60 mg, 1 tablet daily. Lisinopril Oral : 20 mg daily. Metoprolol Tartrate Oral : Tablet 50 mg, 1 tablet bid, out. Omeprazole Oral : 20 mg daily. Prescription Medications: Isosorbide Mononitrate ER 60 mg: take 1 tablet orally every 24 hours. Dispense fifteen (15). No refills. Tramadol 50 mg: take 1 orally every 6 hours as needed for pain and stiffness. Do not take more than 8 tablets in a 24 hour period. Dispense twenty (20). No refills. Diltiazem 240 mg: take 1 orally every 24 hours. Dispense fifteen (15). No refills. Glipizide 5 mg: take 1 orally every 24 hours. Dispense fifteen (15). No refills. Follow-up: Blood pressure screening was not performed during this visit because the patient has an active diagnosis of hypertension. The patient should follow up with a primary care provider for blood pressure management. Follow-up with: [facility], Family Practice, , [address] [place] [address], [id number], [place] [id number] Follow up in about two days. Call for an appointment. ADDITIONAL INFORMATION Hypertension, Out Of Control (Established) Your blood pressure was unusually high today. This can occur as a result of missing doses of your blood pressure medicine. Some asthma inhalers, decongestants, diet pills, and street drugs such as cocaine and amphetamine can worsen hypertension. An increase in body weight, increase in salt intake, smoking, and caffeine are other causes. Emotional upset or acute pain can cause a sudden rapid rise in blood pressure which may return to normal after a period of rest. A normal blood pressure is less than 140/90. The first (top) number is the systolic pressure. The second (bottom) number is the diastolic pressure. Hypertension exists when either the top number is 140 or higher, OR the bottom number is 90 or higher on repeated measurements. Home Care: All patients with high blood pressure should do the following to lower their pressure. If you are on blood pressure medicines, then these methods may reduce or eliminate your need for medicines in the future. Begin a weight-loss program if you are overweight. Reduce your salt intake. Avoid high-salt foods (olives, pickles, smoked meats, salted potato chips, etc.). Do not add salt to your food at the table. Use only small amounts of salt when cooking. Begin an exercise program. Discuss with your doctor what type of exercise program would be best for you. It doesnt have to be difficult. Even brisk walking for 20 minutes3 times a week is a good form of exercise. Avoid medicines which contain heart stimulants. This includes many cold and sinus decongestant pills and sprays as well as diet pills. Check the warnings about hypertension on the label. Stimulants such as amphetamine or cocaine could be lethal for someone with hypertension. Never take these. Limit your caffeine intake or switch to decaf. Stop smoking. If you are a long-time smoker, this can be hard. Enroll in a stop-smoking program to improve your chance of success. Talk to your physician about ways to improve your chance of success. Learning how to handle stress better is an important part of any program to lower blood pressure. Learn about relaxation methods such as meditation, yoga, or biofeedback. If medicines were prescribed, take them exactly as directed. Missing doses may cause your blood pressure to get out of control. Consider buying an automatic blood pressure machine (available at many pharmacies). Use this to monitor your blood pressure and report to your doctor. Follow Up: Regular visits to your own doctor for blood pressure checks and medicine adjustment is an important part of your care. Make a follow-up appointment as directed by our staff. Get Prompt Medical Attention if any of the following occur: Chest, arm, shoulder, neck, or upper back pain Shortness of breath Severe headache Throbbing or rushing sound in the ears Nosebleed Extreme drowsiness, confusion, or fainting Dizziness or vertigo (dizziness with spinning sensation) Weakness of an arm or leg or one side of the face Difficulty with speech or vision Muscle Strain,Extremity A MUSCLE STRAIN is a stretching and tearing of muscle fibers. This causes pain, especially with motion of that muscle. There may also be some swelling and bruising. Home Care: 1) Keep the injured area raised to reduce pain and swelling. This is especially important during the first 48 hours. 2) Make an ice pack (ice cubes in a plastic bag, wrapped in a towel) and apply for 20 minutes every 1-2 hours the first day. You should continue with ice packs 3-4 times a day for the second and third days. Unless otherwise instructed, on the fourth day you may begin hot soaks or hot packs (small towel soaked in hot water) 3-4 times a day while you gently exercise the involved area. 3) You may use acetaminophen (Tylenol) or ibuprofen (Motrin, Advil) to control pain, unless another medicine was prescribed. [ NOTE : If you have chronic liver or kidney disease or ever had a stomach ulcer or GI bleeding, talk with your doctor before using these medicines.] 4) For LEG STRAINS: If CRUTCHES have been recommended, do not bear full weight on the injured leg until you can do so without pain. You may return to sports when you are able to hop and run on the injured leg without pain. Follow Up with your doctor or this facility if you are not improving within the next five days. Get Prompt Medical Attention if any of the following occur: -- Fingers or toes become swollen, cold, blue, numb or tingly -- Pain or swelling increases Hypertension, Out Of Control (Established) Your blood pressure was unusually high today. This can occur as a result of missing doses of your blood pressure medicine. Some asthma inhalers, decongestants, diet pills, and street drugs such as cocaine and amphetamine can worsen hypertension. An increase in body weight, increase in salt intake, smoking, and caffeine are other causes. Emotional upset or acute pain can cause a sudden rapid rise in blood pressure which may return to normal after a period of rest. A normal blood pressure is less than 140/90. The first (top) number is the systolic pressure. The second (bottom) number is the diastolic pressure. Hypertension exists when either the top number is 140 or higher, OR the bottom number is 90 or higher on repeated measurements. Home Care: All patients with high blood pressure should do the following to lower their pressure. If you are on blood pressure medicines, then these methods may reduce or eliminate your need for medicines in the future. Begin a weight-loss program if you are overweight. Reduce your salt intake. Avoid high-salt foods (olives, pickles, smoked meats, salted potato chips, etc.). Do not add salt to your food at the table. Use only small amounts of salt when cooking. Begin an exercise program. Discuss with your doctor what type of exercise program would be best for you. It doesnt have to be difficult. Even brisk walking for 20 minutes3 times a week is a good form of exercise. Avoid medicines which contain heart stimulants. This includes many cold and sinus decongestant pills and sprays as well as diet pills. Check the warnings about hypertension on the label. Stimulants such as amphetamine or cocaine could be lethal for someone with hypertension. Never take these. Limit your caffeine intake or switch to decaf. Stop smoking. If you are a long-time smoker, this can be hard. Enroll in a stop-smoking program to improve your chance of success. Talk to your physician about ways to improve your chance of success. Learning how to handle stress better is an important part of any program to lower blood pressure. Learn about relaxation methods such as meditation, yoga, or biofeedback. If medicines were prescribed, take them exactly as directed. Missing doses may cause your blood pressure to get out of control. Consider buying an automatic blood pressure machine (available at many pharmacies). Use this to monitor your blood pressure and report to your doctor. Follow Up: Regular visits to your own doctor for blood pressure checks and medicine adjustment is an important part of your care. Make a follow-up appointment as directed by our staff. Get Prompt Medical Attention if any of the following occur: Chest, arm, shoulder, neck, or upper back pain Shortness of breath Severe headache Throbbing or rushing sound in the ears Nosebleed Extreme drowsiness, confusion, or fainting Dizziness or vertigo (dizziness with spinning sensation) Weakness of an arm or leg or one side of the face Difficulty with speech or vision Low-Salt Diet (2 Grams/Day) This diet eliminates foods that are high in salt and restricts the amount of salt that you cook with. It is most often used for patients with high blood pressure, edema (fluid retention), kidney, liver, and heart disease. Table salt contains the mineral sodium. The body needs sodium to work normally. But too much sodium can make your health problems worse. Your healthcare provider is recommending a low-salt (also called low-sodium) diet for you. Your total daily allowance of salt (sodium) is 2 grams. This equals 2,000 milligrams (mg). It is less than 1 teaspoon of table salt. This means you can have only about 700 mg of sodium at each meal. When you cook, limit the salt you use. And if you can avoid using salt, even better. Do not add salt at the table. So, throw away the saltshaker! When shopping, read the package labels. Salt is often called sodium on the label. Choose foods that are Salt-Free, Low Salt, or Very Low Salt. Note that foods with Reduced Salt may notlower your salt intake enough. Beverages OK: Tea, coffee, carbonated beverages, juices AVOID: Flavored international coffees, electrolyte replacement drinks, sports beverages Bread & Cereals OK: All regular bread, rolls, cereals, cakes; low-salt crackers, matzoh crackers AVOID: Salted crackers, pretzels, popcorn; kiswahili toast, pancakes, muffins Fruits & Desserts OK: Ice cream, frozen yogurt, juice bars, gelatin (Jell-O), cookies and pies, sugar, honey, jelly, hard candy AVOID: Most pies, cakes and cookies prepared or processed with salt, instant pudding Meats OK: All fresh meat, fish, poultry, low-salt tuna AVOID: Smoked, pickled, brine-cured, or salted meats or fish. Thisincludes coon, chipped beef, corned beef, hot dogs, luncheon meats, ham, kosher meats, salt pork, sausage, canned tuna, salted codfish, smokedsalmon, lynhc, sardines, or anchovies. Dairy OK: Milk, chocolate milk, hot chocolate mix; eggs, Low Salt cheeses, yogurt, egg substitute AVOID: Processed cheese, cheese spreads, Roquefort, Camembert, and cottage cheese, buttermilk, instant breakfast drink Beans, Potatoes & Pasta OK: Dry beans, split peas, lentils, potatoes, rice, macaroni, noodles, spaghetti without added salt AVOID: Potato chips, tortilla chips, and similar products Soups OK: Low-salt soups and broths made with allowed foods AVOID: Bouillon cubes, soups with smoked or salted meats, regular soup and broth Vegetables OK: Most are okay; low-salt tomato and vegetable juices AVOID: Sauerkraut and other brine-soaked vegetables, pickles and other pickled vegetables, tomato juice, olives Seasoning & Spices OK: Most seasonings are okay. Good substitutes for salt include: fresh herb blends, Tabasco, lemon, garlic, smith, vinegar, dry mustard, parsley, cilantro, horseradish, tomato paste, regular margarine, mayonnaise, butter, cream cheese, vegetable oil, cream, low-salt salad dressing and gravy AVOID: Regular ketchup, relishes, pickles, soy sauce, teriyaki sauce, Worcestershire sauce, BBQ sauce, tartar sauce, meat tenderizer, chili sauce, regular gravy, regular salad dressing Tramadol Hydrochloride Oral tablet What is this medicine? TRAMADOL (TRA ma dole) is a pain reliever. It is used to treat moderate to severe pain in adults. How should I use this medicine? Take this medicine by mouth with a full glass of water. Follow the directions on the prescription label. If the medicine upsets your stomach, take it with food or milk. Do not take more medicine than you are told to take. Talk to your heating and cooling systems engineer regarding the use of this medicine in children. Special care may be needed. What side effects may I notice from receiving this medicine? Side effects that you should report to your doctor or health family member caretaker as soon as possible: allergic reactions like skin rash, itching or hives, swelling of the face, lips, or tongue breathing difficulties, wheezing confusion itching light headedness or fainting spells redness, blistering, peeling or loosening of the skin, including inside the mouth seizures Side effects that usually do not require medical attention (report to your doctor or health family member caretaker if they continue or are bothersome): constipation dizziness drowsiness headache nausea, vomiting What may interact with this medicine? Do not take this medicine with any of the following medications: MAOIs like Carbex, Eldepryl, Marplan, Nardil, and Parnate This medicine may also interact with the following medications: alcohol or medicines that contain alcohol antihistamines benzodiazepines bupropion carbamazepine or oxcarbazepine clozapine cyclobenzaprine digoxin furazolidone linezolid medicines for depression, anxiety, or psychotic disturbances medicines for migraine headache like almotriptan, eletriptan, frovatriptan, naratriptan, rizatriptan, sumatriptan, zolmitriptan medicines for pain like pentazocine, buprenorphine, butorphanol, meperidine, nalbuphine, and propoxyphene medicines for sleep muscle relaxants naltrexone phenobarbital phenothiazines like perphenazine, thioridazine, chlorpromazine, mesoridazine, fluphenazine, prochlorperazine, promazine, and trifluoperazine procarbazine warfarin What if I miss a dose? If you miss a dose, take it as soon as you can. If it is almost time for your next dose, take only that dose. Do not take double or extra doses. Where should I keep my medicine? Keep out of the reach of children. Store at room temperature between 15 and 30 degrees C (59 and 86 degrees F). Keep container tightly closed. Throw away any unused medicine after the expiration date. What should I tell my health care provider before I take this medicine? They need to know if you have any of these conditions: brain tumor depression drug abuse or addiction head injury if you frequently drink alcohol containing drinks kidney disease or trouble passing urine liver disease lung disease, asthma, or breathing problems seizures or epilepsy suicidal thoughts, plans, or attempt; a previous suicide attempt by you or a family member an unusual or allergic reaction to tramadol, codeine, other medicines, foods, dyes, or preservatives or trying to get breast-feeding What should I watch for while using this medicine? Tell your doctor or health family member caretaker if your pain does not go away, if it gets worse, or if you have new or a different type of pain. You may develop tolerance to the medicine. Tolerance means that you will need a higher dose of the medicine for pain relief. Tolerance is normal and is expected if you take this medicine for a long time. Do not suddenly stop taking your medicine because you may develop a severe reaction. Your body becomes used to the medicine. This does NOT mean you are addicted. Addiction is a behavior related to getting and using a drug for a non-medical reason. If you have pain, you have a medical reason to take pain medicine. Your doctor will tell you how much medicine to take. If your doctor wants you to stop the medicine, the dose will be slowly lowered over time to avoid any side effects. You may get drowsy or dizzy. Do not drive, use machinery, or do anything that needs mental alertness until you know how this medicine affects you. Do not stand or sit up quickly, especially if you are an older patient. This reduces the risk of dizzy or fainting spells. Alcohol can increase or decrease the effects of this medicine. Avoid alcoholic drinks. You may have constipation. Try to have a bowel movement at least every 2 to 3 days. If you do not have a bowel movement for 3 days, call your doctor or health family member caretaker. Your mouth may get dry. Chewing sugarless gum or sucking hard candy, and drinking plenty of water may help. Contact your doctor if the problem does not go away or is severe. Diltiazem Hydrochloride Oral tablet What is this medicine? DILTIAZEM (dil CHARLES a skyla) is a calcium-channel christopher. It affects the amount of calcium found in your heart and muscle cells. This relaxes your blood vessels, which can reduce the amount of work the heart has to do. This medicine is used to treat chest pain caused by angina. How should I use this medicine? Take this medicine by mouth with a glass of water. Follow the directions on the prescription label. This medicine is usually taken before meals and at bedtime. Take your doses at regular intervals. Do not take your medicine more often then directed. Do not stop taking except on the advice of your doctor or health family member caretaker. Talk to your heating and cooling systems engineer regarding the use of this medicine in children. Special care may be needed. What side effects may I notice from receiving this medicine? Side effects that you should report to your doctor or health family member caretaker as soon as possible: allergic reactions like skin rash, itching or hives, swelling of the face, lips, or tongue confusion, mental depression feeling faint or lightheaded, falls pinpoint red spots on the skin redness, blistering, peeling or loosening of the skin, including inside the mouth slow, irregular heartbeat swelling of the ankles, feet unusual bleeding or bruising Side effects that usually do not require medical attention (report to your doctor or health family member caretaker if they continue or are bothersome): change in sex drive or performance constipation or diarrhea flushing of the face headache nausea, vomiting tired or weak trouble sleeping What may interact with this medicine? Do not take this medicine with any of the following: cisapride hawthorn pimozide ranolazine red yeast rice This medicine may also interact with the following medications: buspirone carbamazepine cimetidine cyclosporine digoxin local anesthetics or general anesthetics lovastatin medicines for anxiety or difficulty sleeping like midazolam and triazolam medicines for high blood pressure or heart problems quinidine rifampin, rifabutin, or rifapentine What if I miss a dose? If you miss a dose, take it as soon as you can. If it is almost time for your next dose, take only that dose. Do not take double or extra doses. Where should I keep my medicine? Keep out of the reach of children. Store at room temperature between 20 and 25 degrees C (68 and 77 degrees F). Protect from light. Keep container tightly closed. Throw away any unused medicine after the expiration date. What should I tell my health care provider before I take this medicine? They need to know if you have any of these conditions: heart problems, low blood pressure, irregular heartbeat liver disease previous heart attack an unusual or allergic reaction to diltiazem, other medicines, foods, dyes, or preservatives or trying to get breast-feeding What should I watch for while using this medicine? Check your blood pressure and pulse rate regularly. Ask your doctor or health family member caretaker what your blood pressure and pulse rate should be and when you should contact him or her. You may feel dizzy or lightheaded. Do not drive, use machinery, or do anything that needs mental alertness until you know how this medicine affects you. To reduce the risk of dizzy or fainting spells, do not sit or stand up quickly, especially if you are an older patient. Alcohol can make you more dizzy or increase flushing and rapid heartbeats. Avoid alcoholic drinks. You have been given the following additional information: Hypertension, Established, Out Of Control Muscle Strain, Extremity Hypertension, Established, Out Of Control Diet, Low Salt (2Gm) Tramadol Hydrochloride Oral tablet Diltiazem Hydrochloride Oral tablet (Electronically signed by Jose Beth Dr. 07/30/2016 21:40)
--- NOTE | 2016-07-30 21:41 | ED MED RECONCILIATION SUMMARY ---
Patient: LILIAM MONTESINOS Medication Reconciliation Report [facility] VisitID: [id number] [place] [address] 71y, M Registration Date/Time: 07/30/2016 Weight: 97.0 kg Height/Length: 68 in. BMI: 32.5 ALLERGIES: Bees, PCN The patient's Home Medications are listed below: CONTINUE TAKING THE FOLLOWING MEDICATIONS: Diltiazem HCl ER Oral (240 mg) 1 capsule, daily, out Glipizide Oral (5 mg) 1/2 tablet, daily Hydrocodone-Acetaminophen Oral, out Isosorbide Mononitrate ER Oral (60 mg) 1 tablet, daily Lisinopril Oral 20 mg, daily Metoprolol Tartrate Oral (50 mg) 1 tablet, bid, out Omeprazole Oral 20 mg, daily The source(s) of the original Home Medication information: patient's pill bottles The following Medications were given to the patient in the Emergency Department: IV NS IV Fluids bolus 0, then 1000 mL/hr, administered: 07/30/2016 9:35:00 AM Zofran [IVP] IVP 4 mg, administered: 07/30/2016 9:41:00 AM Dilaudid [IVP] IVP 1 mg, administered: 07/30/2016 9:41:00 AM Metoprolol [IVP] IVP 2.5 mg, administered: 07/30/2016 9:47:00 AM Metoprolol [IVP] IVP 2.5 mg, administered: 07/30/2016 11:37:00 AM Reglan [IVP] IVP 10 mg, administered: 07/30/2016 11:37:00 AM Hydralazine [IVP] IVP 20 mg, administered: 07/30/2016 12:38:00 PM The following Medications were prescribed to the patient: Isosorbide Mononitrate ER 60 mg: take 1 tablet orally every 24 hours. Dispense fifteen (15). No refills. -- Jose Beth Dr. Tramadol 50 mg: take 1 orally every 6 hours as needed for pain and stiffness. Do not take more than 8 tablets in a 24 hour period. Dispense twenty (20). No refills. -- Jose Beth Dr. Diltiazem 240 mg: take 1 orally every 24 hours. Dispense fifteen (15). No refills. -- Jose Beth Dr. Glipizide 5 mg: take 1 orally every 24 hours. Dispense fifteen (15). No refills. -- Jose Beth Dr.
== END 2016-07-30 13:46 | disposition home or self-care (01) ==
LOC: ED SRH 08:10
DX: I10 Essential (primary) hypertension (principal); R51 Headache; J45.909 Unspecified asthma, uncomplicated; S76.112A Strain of left quadriceps muscle, fascia and tendon, initial encounter; F17.210 Nicotine dependence, cigarettes, uncomplicated; X58.XXXA Exposure to other specified factors, initial encounter; Y93.9 Activity, unspecified; Y92.9 Unspecified place or not applicable; Y99.9 Unspecified external cause status; E11.9 Type 2 diabetes mellitus without complications

== ENCOUNTER 2016-08-19 10:45 | Emergency (ER) | payer OTHER ==
--- NOTE | 2016-08-19 13:39 | ED CLINICAL REPORT ---
Clinical Report - Physicians/Mid Levels [facility] [address] [place] [address] 08/19/2016 10:45 Patient: LILIAM MONTESINOS Time Seen: 11:08; initial patient contact. Arrived- By private vehicle. Historian- patient. HISTORY OF PRESENT ILLNESS Chief Complaint: Injury to left knee. The injury happened just prior to arrival. The patient sustained a laceration from a saw. Occurred at home. Patient is experiencing moderate pain. Patient denies injury to the head or neck. REVIEW OF SYSTEMS The patient sustained a laceration. No swelling, tingling, weakness, numbness or suspected foreign body. He has no pain on weight bearing. All systems otherwise negative, except as recorded above. PAST HISTORY ( Muscle Strain, Lower Extremity. Hypertensive Headache. Pneumonia. Renal Insufficiency. Abrasion(s). Pancreatitis. GI Disease. Back Pain. Diverticulitis. Cholecystitis. Migraine Headache. Tension-Type Headache. Chronic Headache. Laceration. Syncope. Fractured Metacarpal. Headache. Bronchitis. COPD - Chronic Obstructive Pulmonary Disease. Hepatitis. Abnormal Liver Function Test. Immunizations. Abdominal Pain. Asthma. Diabetes Mellitus. Hypertension. Lupus. Tuberculosis. --10:59 Khris Burns R.N. Pancreatitis [RuleOut]. Hepatic Encephalopathy [RuleOut]. Sleep Apnea [RuleOut]. --10:59 Khris Burns R.N. ADDITIONAL SURGERIES: Carpal Tunnel Surgery. Cyst on back. Fracture Repair. Hernia Repair. Previous Abdominal Surgery. Right index finger surgery. Umbilical Hernia Repair.). Medications: Diltiazem HCl ER Oral (Capsule Extended Release 24 Hour 240 mg) 1 capsule, daily (out). Glipizide Oral (Tablet 5 mg) 1/2 tablet, daily. Hydrocodone-Acetaminophen Oral (out). Isosorbide Mononitrate ER Oral (Tablet Extended Release 24 Hour 60 mg) 1 tablet, daily. Lisinopril Oral 20 mg, daily. Metoprolol Tartrate Oral (Tablet 50 mg) 1 tablet, bid (out). Omeprazole Oral 20 mg, daily. Allergies: Bees. PCN. SOCIAL HISTORY Current every day smoker. History of drug use: marijuana. No alcohol use. ADDITIONAL NOTES The nursing notes have been reviewed with agreement regarding the chief complaint, PMH and patient medications and allergies. PHYSICAL EXAM Vital Signs: 08/19/2016 10:56 BP: 230/90. HR: 85. RR: 18. O2 saturation: 99%. Temp: 98 F. Pain level now: 0/10. Have been reviewed. Hypertensive. Heart rate normal. Respiratory rate normal. Temperature normal. Oxygen saturation normal. Appearance: Alert. Oriented X3. No acute distress. Skin: Skin warm and dry. Extremities: Left knee: mild erythema, moderate tenderness and subcutaneous laceration greater than 5.0 cm. SEE LACERATION PROCEDURE NOTE #1. Extremities otherwise negative. Gait: Normal gait. Neuro, Vascular and Tendons: Vascular status intact. Sensation intact. Motor intact. Tendon function intact. Neuro: Oriented X 3. No motor deficit. No sensory deficit. PROGRESS AND PROCEDURES Laceration Repair: Location: left knee. Per protocol, time-out completed immediately before the procedure. Length: 8 cm. Complexity: intermediate (single layer closure with heavy contamination and requiring extensive irrigation and cleaning). Wound depth/shape- linear and involving fascia. Contamination present. Distal neuro/vascular/tendon status normal. Anesthesia provided using 2% lidocaine. Prepped with Shur-Clens. Closure of skin: interrupted 3-0 Prolene (6 sutures). Post-procedure: he is stable and there are no complications. Bleeding is controlled and neuro-vascular status is intact distal to the wound. Dressing applied. Tetanus immunization given. Estimated blood loss: 5 mL. Disposition: Discharged home in good and improved condition. Condition: good. CLINICAL IMPRESSION Single deep laceration to the left knee.Treatment of laceration not delayed. No infection or foreign body present. Essential hypertension. INSTRUCTIONS Protect wound and keep wound area clean. Change dressing twice daily. You may wash wounds briefly, then dry. Apply bacitracin twice daily and neosporin. Sutures/john should be removed in ten days. Your Current Medications: CONTINUE TAKING THE FOLLOWING MEDICATIONS: Diltiazem HCl ER Oral : Capsule Extended Release 24 Hour 240 mg, 1 capsule daily, out. Glipizide Oral : Tablet 5 mg, 1/2 tablet daily. Hydrocodone-Acetaminophen Oral : out. Isosorbide Mononitrate ER Oral : Tablet Extended Release 24 Hour 60 mg, 1 tablet daily. Lisinopril Oral : 20 mg daily. Metoprolol Tartrate Oral : Tablet 50 mg, 1 tablet bid, out. Omeprazole Oral : 20 mg daily. Prescription Medications: Hydralazine 10 mg: take 1 orally every 6 hours. Dispense thirty (30). One refill. Follow-up: Follow up with your doctor in ten days for suture removal. Call for an appointment. Blood pressure screening was not performed during this visit because the patient has an active diagnosis of hypertension. The patient should follow up with a primary care provider for blood pressure management. (Electronically signed by Jose Beth Dr. 08/19/2016 22:07)
--- NOTE | 2016-08-19 13:40 | ED NURSING NOTES ---
Clinical Report - Nurses [facility] [address] [place] [address] 08/19/2016 10:45 Patient: LILIAM MONTESINOS TRIAGE Triage time 10:56. Acuity: LEVEL 4. Chief Complaint: INJURY TO LEFT KNEE. 10:56 08/19/16. 10:56 08/19/16. Alert. No acute distress. ( Pt states he injured his left knee yesterday with a chainsaw. Pt states he did not have a ride here. Pt also states he did not take his antihypertensive meds today.). SEPSIS SCREEN: Sepsis Screen. Negative (no infection suspected/documented). AVELINO COMA SCORE: Letha Coma Scale: 15- eyes open spontaneously (4); best verbal response- oriented x 4 (5); best motor response- obeys commands (6). --11:02 Khris Burns R.N. 10:56 08/19/16. BP: 230/90. HR: 85. RR: 18 (regular). O2 saturation: 99% on room air. Temp: 98 F (oral). Pain level now: 0/10. --11:02 Khris Burns R.N. Weight: 97.5 kg stated. Height/Length: 68 inches Per Patient. BMI: 32.7. --10:59 Khris Burns R.N. Medications Diltiazem HCl ER Oral (Capsule Extended Release 24 Hour 240 mg) 1 capsule, daily (out). Glipizide Oral (Tablet 5 mg) 1/2 tablet, daily. Hydrocodone-Acetaminophen Oral (out). Isosorbide Mononitrate ER Oral (Tablet Extended Release 24 Hour 60 mg) 1 tablet, daily. Lisinopril Oral 20 mg, daily. Metoprolol Tartrate Oral (Tablet 50 mg) 1 tablet, bid (out). Omeprazole Oral 20 mg, daily. --10:58 Khris Burns R.N. Medication/allergy information source: the patient. --11:02 Khris Burns R.N. Allergies Bees. PCN. --10:58 Khris Burns R.N. History Arrived by private vehicle. Historian: patient. Accompanied by (pts caregiver). Primary physician (SHMUEL PENA). 10:56 08/19/16. This occurred yesterday. Occurred at home. He sustained a laceration (Chainsaw). Treatment DIRECTOR OF EDUCATION: None. PAST MEDICAL HX: Tetanus immunization status is not up-to-date. Immunizations not up to date. SOCIAL HX: Current every day light tobacco smoker (cigarette)- less than 1/2 a pack per day. History of heavy drug use: marijuana. Recently used drugs yesterday. No alcohol use. No infectious disease exposure. ABUSE ASSESSMENT: No report of abuse. FALL RISK ASSESSMENT: Fall risk assessment completed. No fall risk identified. NUTRITIONAL RISK ASSESSMENT: The nutritional risk assessment revealed no deficiencies. FUNCTIONAL ASSESSMENT: Functional assessment: no impairments noted. LEARNING NEEDS ASSESSMENT: The learning needs assessment revealed no barriers. SKIN INTEGRITY ASSESSMENT: Skin integrity risk assessment completed. No skin integrity risk identified. --11:02 Khris Burns R.N. PROBLEMS: Muscle Strain, Lower Extremity. Hypertensive Headache. Pneumonia. Renal Insufficiency. Abrasion(s). Pancreatitis. GI Disease. Back Pain. Diverticulitis. Cholecystitis. Migraine Headache. Tension-Type Headache. Chronic Headache. Laceration. Syncope. Fractured Metacarpal. Headache. Bronchitis. COPD - Chronic Obstructive Pulmonary Disease. Hepatitis. Abnormal Liver Function Test. Immunizations. Abdominal Pain. Asthma. Diabetes Mellitus. Hypertension. Lupus. Tuberculosis. --10:59 Khris Burns R.N. Pancreatitis [RuleOut]. Hepatic Encephalopathy [RuleOut]. Sleep Apnea [RuleOut]. --10:59 Khris Burns R.N. ADDITIONAL SURGERIES: Carpal Tunnel Surgery. Cyst on back. Fracture Repair. Hernia Repair. Previous Abdominal Surgery. Right index finger surgery. Umbilical Hernia Repair. --10:59 Khris Burns R.N. Assessment 10:56 08/19/16. --11:02 Khris Burns R.N. Interventions 10:56 08/19/16. 10:56 08/19/16. ID and allergy band on patient. To treatment room. --11:02 Khris Burns R.N. PHYSICAL ASSESSMENT 11:00 08/19/16. Ambulatory to room. GENERAL / NEURO / PSYCH: Oriented X 4. Alert. Appears in no acute distress. EXTREMITIES: Capillary refill is less than 2 seconds in the extremities. Limping gait. Left knee: laceration with controlled bleeding. SKIN: Skin is warm and dry. --11:00 Khris Burns R.N. NURSING PROGRESS NOTES 11:08/19/16. The plan of care for this patient has been created. Cold pack applied. Extremity elevated. Patient gowned. Reassurance given. Two patient identifiers checked. Call light placed in reach. Side rails up x 2. Bed placed in lowest position. Brakes of bed on. --11:00 Khris Burns R.N. 11:08/19/16. Patient ready for evaluation- chart flagged and notification provided. --11:00 Khris Burns R.N. 11:06 08/19/2016 TDAP IM 0.5 mL given. (Lot#: [id number], expiration date: 03/16/2018, Skein Mercerizing Machine Operator: sanofi pasteur). Given in the right deltoid. Allergies verified and confirmed 5 rights. Vaccine information statement provided to the patient. --11:11 Khris Burns R.N. 11:08/19/16. Wound cleansed with sterile saline (by tech). --11:12 Khris Burns R.N. Wound cleansed with sterile saline (500 ml). --12:03 Frantz Reese 12:09 08/19/16. BP: 208/110. HR: 72. RR: 14. O2 saturation: 98% on room air. --12:11 Khris Burns R.N. 12:11 08/19/16. --12:11 Khris Burns R.N. 12:08/19/16. Patient and family informed about reason for wait and about plan of care. --12:11 Khris Burns R.N. 12:08/19/16. ED physician notified about patient's status. Notified about vital signs. --12:12 Khris Burns R.N. 12:16 08/19/16. ( Gave pt a snack, water, crackers). --12:16 Khris Burns R.N. 12:22 08/19/2016 Lidocaine Injection 2 % given. Allergies verified and confirmed 5 rights. (Given by MD in left knee). --12:22 Khris Burns R.N. 12:42 08/19/2016 Lidocaine Injection 2 % given. Allergies verified and confirmed 5 rights. (Left Knee by MD). --12:42 Khris Burns R.N. 13:02 08/19/2016 Hydralazine IM 20 mg given. Given in the left deltoid. Allergies verified and confirmed 5 rights. --13:02 Khris Burns R.N. 13:03 08/19/16. ( Wound dressed by tech). --13:03 Khris Burns R.N. 13:02 08/19/16. BP: 221/101 taken on the left arm, while lying. HR: 68. RR: 16. O2 saturation: 98% on room air. --13:03 Khris Burns R.N. 13:03 08/19/16. ED physician notified. Notified about vital signs. --13:03 Khris Burns R.N. Applied clean dressing consisting of 4x4 gauze, following the application of antibiotic ointment (bacitracin). Secured with tape and kerlix. --13:09 [facility]. DISPOSITION / DISCHARGE 13:37 08/19/16. Condition at departure: improved. The goals identified in the patient's plan of care were met. No learning barriers present. Discharge instructions provided and reviewed with automotive parts person and the patient. Reviewed warnings. Reviewed medication(s). Treatments reviewed. Patient and automotive parts person verbalized understanding. Written instructions provided in Macedonian. The patient was discharged by the physician. He was discharged home and accompanied by automotive parts person. He left the Emergency Department ambulatory and via private vehicle. Hotel Dining Room Cashier driving. FALL RISK ASSESSMENT: Fall risk assessment completed. No fall risk identified. --13:37 Khris Burns R.N. 13:36 08/19/16. BP: 207/90. BP. ED physician notified. HR: 72. RR: 14. O2 saturation: 98% on room air. --13:37 Khris Burns R.N. 13:48 08/19/16. Departure time: 13:48. ( Pt aware to follow up in 10 days for suture removal and LISETH for hypertension). --13:49 Khris Burns R.N. Locked/Released at 08/19/2016 14:44 by Khris Burns R.N.
--- NOTE | 2016-08-19 13:40 | ED NURSING NOTES ---
Clinical Report - Nurses [facility] [address] [place] [address] 08/19/2016 10:45 Patient: LILIAM MONTESINOS TRIAGE Triage time 10:56. Acuity: LEVEL 4. Chief Complaint: INJURY TO LEFT KNEE. 10:56 08/19/16. 10:56 08/19/16. Alert. No acute distress. ( Pt states he injured his left knee yesterday with a chainsaw. Pt states he did not have a ride here. Pt also states he did not take his antihypertensive meds today.). SEPSIS SCREEN: Sepsis Screen. Negative (no infection suspected/documented). AVELINO COMA SCORE: Sinclair Coma Scale: 15- eyes open spontaneously (4); best verbal response- oriented x 4 (5); best motor response- obeys commands (6). --11:02 Khris Burns R.N. 10:56 08/19/16. BP: 230/90. HR: 85. RR: 18 (regular). O2 saturation: 99% on room air. Temp: 98 F (oral). Pain level now: 0/10. --11:02 Khris Burns R.N. Weight: 97.5 kg stated. Height/Length: 68 inches Per Patient. BMI: 32.7. --10:59 Khris Burns R.N. Medications Diltiazem HCl ER Oral (Capsule Extended Release 24 Hour 240 mg) 1 capsule, daily (out). Glipizide Oral (Tablet 5 mg) 1/2 tablet, daily. Hydrocodone-Acetaminophen Oral (out). Isosorbide Mononitrate ER Oral (Tablet Extended Release 24 Hour 60 mg) 1 tablet, daily. Lisinopril Oral 20 mg, daily. Metoprolol Tartrate Oral (Tablet 50 mg) 1 tablet, bid (out). Omeprazole Oral 20 mg, daily. --10:58 Khris Burns R.N. Medication/allergy information source: the patient. --11:02 Khris Burns R.N. Allergies Bees. PCN. --10:58 Khris Burns R.N. History Arrived by private vehicle. Historian: patient. Accompanied by (pts caregiver). Primary physician (SHMUEL PENA). 10:56 08/19/16. This occurred yesterday. Occurred at home. He sustained a laceration (Chainsaw). Treatment BIOMETRICS ANALYST: None. PAST MEDICAL HX: Tetanus immunization status is not up-to-date. Immunizations not up to date. SOCIAL HX: Current every day light tobacco smoker (cigarette)- less than 1/2 a pack per day. History of heavy drug use: marijuana. Recently used drugs yesterday. No alcohol use. No infectious disease exposure. ABUSE ASSESSMENT: No report of abuse. FALL RISK ASSESSMENT: Fall risk assessment completed. No fall risk identified. NUTRITIONAL RISK ASSESSMENT: The nutritional risk assessment revealed no deficiencies. FUNCTIONAL ASSESSMENT: Functional assessment: no impairments noted. LEARNING NEEDS ASSESSMENT: The learning needs assessment revealed no barriers. SKIN INTEGRITY ASSESSMENT: Skin integrity risk assessment completed. No skin integrity risk identified. --11:02 Khris Burns R.N. PROBLEMS: Muscle Strain, Lower Extremity. Hypertensive Headache. Pneumonia. Renal Insufficiency. Abrasion(s). Pancreatitis. GI Disease. Back Pain. Diverticulitis. Cholecystitis. Migraine Headache. Tension-Type Headache. Chronic Headache. Laceration. Syncope. Fractured Metacarpal. Headache. Bronchitis. COPD - Chronic Obstructive Pulmonary Disease. Hepatitis. Abnormal Liver Function Test. Immunizations. Abdominal Pain. Asthma. Diabetes Mellitus. Hypertension. Lupus. Tuberculosis. --10:59 Khris Burns R.N. Pancreatitis [RuleOut]. Hepatic Encephalopathy [RuleOut]. Sleep Apnea [RuleOut]. --10:59 Khris Burns R.N. ADDITIONAL SURGERIES: Carpal Tunnel Surgery. Cyst on back. Fracture Repair. Hernia Repair. Previous Abdominal Surgery. Right index finger surgery. Umbilical Hernia Repair. --10:59 Khris Burns R.N. Assessment 10:56 08/19/16. --11:02 Khris Burns R.N. Interventions 10:56 08/19/16. 10:56 08/19/16. ID and allergy band on patient. To treatment room. --11:02 Khris Burns R.N. PHYSICAL ASSESSMENT 11:00 08/19/16. Ambulatory to room. GENERAL / NEURO / PSYCH: Oriented X 4. Alert. Appears in no acute distress. EXTREMITIES: Capillary refill is less than 2 seconds in the extremities. Limping gait. Left knee: laceration with controlled bleeding. SKIN: Skin is warm and dry. --11:00 Khris Burns R.N. NURSING PROGRESS NOTES 11:08/19/16. The plan of care for this patient has been created. Cold pack applied. Extremity elevated. Patient gowned. Reassurance given. Two patient identifiers checked. Call light placed in reach. Side rails up x 2. Bed placed in lowest position. Brakes of bed on. --11:00 Khris Burns R.N. 11:08/19/16. Patient ready for evaluation- chart flagged and notification provided. --11:00 Khris Burns R.N. 11:06 08/19/2016 TDAP IM 0.5 mL given. (Lot#: [id number], expiration date: 03/16/2018, Railway Signal Operator: sanofi pasteur). Given in the right deltoid. Allergies verified and confirmed 5 rights. Vaccine information statement provided to the patient. --11:11 Khris Burns R.N. 11:08/19/16. Wound cleansed with sterile saline (by tech). --11:12 Khris Burns R.N. Wound cleansed with sterile saline (500 ml). --12:03 Frantz Reese 12:09 08/19/16. BP: 208/110. HR: 72. RR: 14. O2 saturation: 98% on room air. --12:11 Khris Burns R.N. 12:11 08/19/16. --12:11 Khris Burns R.N. 12:08/19/16. Patient and family informed about reason for wait and about plan of care. --12:11 Khris Burns R.N. 12:08/19/16. ED physician notified about patient's status. Notified about vital signs. --12:12 Khris Burns R.N. 12:16 08/19/16. ( Gave pt a snack, water, crackers). --12:16 Khris Burns R.N. 12:22 08/19/2016 Lidocaine Injection 2 % given. Allergies verified and confirmed 5 rights. (Given by MD in left knee). --12:22 Khris Burns R.N. 12:42 08/19/2016 Lidocaine Injection 2 % given. Allergies verified and confirmed 5 rights. (Left Knee by MD). --12:42 Khris Burns R.N. 13:02 08/19/2016 Hydralazine IM 20 mg given. Given in the left deltoid. Allergies verified and confirmed 5 rights. --13:02 Khris Burns R.N. 13:03 08/19/16. ( Wound dressed by tech). --13:03 Khris Burns R.N. 13:02 08/19/16. BP: 221/101 taken on the left arm, while lying. HR: 68. RR: 16. O2 saturation: 98% on room air. --13:03 Khris Burns R.N. 13:03 08/19/16. ED physician notified. Notified about vital signs. --13:03 Khris Burns R.N. Applied clean dressing consisting of 4x4 gauze, following the application of antibiotic ointment (bacitracin). Secured with tape and kerlix. --13:09 [facility]. DISPOSITION / DISCHARGE 13:37 08/19/16. Condition at departure: improved. The goals identified in the patient's plan of care were met. No learning barriers present. Discharge instructions provided and reviewed with linux admin engineer and the patient. Reviewed warnings. Reviewed medication(s). Treatments reviewed. Patient and linux admin engineer verbalized understanding. Written instructions provided in Indonesian. The patient was discharged by the physician. He was discharged home and accompanied by linux admin engineer. He left the Emergency Department ambulatory and via private vehicle. Restaurant Shift Supervisor driving. FALL RISK ASSESSMENT: Fall risk assessment completed. No fall risk identified. --13:37 Khris Burns R.N. 13:36 08/19/16. BP: 207/90. BP. ED physician notified. HR: 72. RR: 14. O2 saturation: 98% on room air. --13:37 Khris Burns R.N. 13:48 08/19/16. Departure time: 13:48. ( Pt aware to follow up in 10 days for suture removal and LISETH for hypertension). --13:49 Khris Burns R.N. Locked/Released at 08/19/2016 14:44 by Khris Burns R.N.
--- NOTE | 2016-08-19 13:40 | ED ORDER SUMMARY ---
..... Patient: LILIAM MONTESINOS OrderSheet [facility] VisitID: [id number] [address] [place] [address] 71y, M Registration Date/Time: 08/19/2016 ORDER SHEET Weight: 97.5 kg (stated) Allergies: Bees, PCN GENERAL ORDERS: - (Irrigate Left Knee wound) (11:11 08/19/2016 JBoardley R.N. per protocol) (11:11 JBoardley R.N.) Suture Set-up: (12:20 08/19/2016 Marcel Wong) (12:54 JBoardley R.N.) Dress Wounds (13:05 08/19/2016 JBoardley R.N. per protocol) (13:05 JBoardley R.N.) MEDICATION ORDERS: Tdap IM 0.5 mL (NOW, per protocol) (11:00 08/19/2016 JBoargeo R.N. per protocol) (11:11 JBoardley R.N.) Lidocaine Injection 2 % (soln) (NOW) (12:20 08/19/2016 Marcel Wong) (Ack 12:21 JBoardley R.N.) (12:22 JBoardley R.N.) Hydralazine IM 20 mg (HIGH ALERT MEDICATION, NOW) (12:46 08/19/2016 Marcel Wong) (Ack 12:54 JBoardley R.N.) (13:02 JBoardley R.N.) IV FLUIDS: ORDER SHEET NOTES: [Electronically signed by Khris Burns R.N. (14:44 08/19/2016)] [Electronically signed by Jose Beth Dr. (22:07 08/19/2016)] [Electronically locked/signed by Khris Burns R.N. (14:44 08/19/2016)]
--- NOTE | 2016-08-19 13:40 | ED ORDER SUMMARY ---
..... Patient: LILIAM MONTESINOS OrderSheet [facility] VisitID: [id number] [address] [place] [address] 71y, M Registration Date/Time: 08/19/2016 ORDER SHEET Weight: 97.5 kg (stated) Allergies: Bees, PCN GENERAL ORDERS: - (Irrigate Left Knee wound) (11:11 08/19/2016 JBoardley R.N. per protocol) (11:11 JBoardley R.N.) Suture Set-up: (12:20 08/19/2016 Marcel Wong) (12:54 JBoardley R.N.) Dress Wounds (13:05 08/19/2016 JBoardley R.N. per protocol) (13:05 JBoardley R.N.) MEDICATION ORDERS: Tdap IM 0.5 mL (NOW, per protocol) (11:00 08/19/2016 JBoargeo R.N. per protocol) (11:11 JBoardley R.N.) Lidocaine Injection 2 % (soln) (NOW) (12:20 08/19/2016 Marcel Wong) (Ack 12:21 JBoardley R.N.) (12:22 JBoardley R.N.) Hydralazine IM 20 mg (HIGH ALERT MEDICATION, NOW) (12:46 08/19/2016 Marcel Wong) (Ack 12:54 JBoardley R.N.) (13:02 JBoardley R.N.) IV FLUIDS: ORDER SHEET NOTES: [Electronically signed by Khris Burns R.N. (14:44 08/19/2016)] [Electronically signed by Jose Beth Dr. (22:07 08/19/2016)] [Electronically locked/signed by Khris Burns R.N. (14:44 08/19/2016)]
--- NOTE | 2016-08-19 22:07 | ED DISCHARGE INSTRUCTIONS ---
Patient: LILIAM MONTESINOS General Instructions [facility] VisitID: [id number] [address] [place] [address] 71y, M Registration Date/Time: 08/19/2016 Single deep laceration to the left knee.Treatment of laceration not delayed. No infection or foreign body present. Essential hypertension. INSTRUCTIONS Protect wound and keep wound area clean. Change dressing twice daily. You may wash wounds briefly, then dry. Apply bacitracin twice daily and neosporin. Sutures/john should be removed in ten days. Your Current Medications: CONTINUE TAKING THE FOLLOWING MEDICATIONS: Diltiazem HCl ER Oral : Capsule Extended Release 24 Hour 240 mg, 1 capsule daily, out. Glipizide Oral : Tablet 5 mg, 1/2 tablet daily. Hydrocodone-Acetaminophen Oral : out. Isosorbide Mononitrate ER Oral : Tablet Extended Release 24 Hour 60 mg, 1 tablet daily. Lisinopril Oral : 20 mg daily. Metoprolol Tartrate Oral : Tablet 50 mg, 1 tablet bid, out. Omeprazole Oral : 20 mg daily. Prescription Medications: Hydralazine 10 mg: take 1 orally every 6 hours. Dispense thirty (30). One refill. Follow-up: Follow up with your doctor in ten days for suture removal. Call for an appointment. Blood pressure screening was not performed during this visit because the patient has an active diagnosis of hypertension. The patient should follow up with a primary care provider for blood pressure management. ADDITIONAL INFORMATION Laceration (All Closures) Alaceration is a cut through the skin. This will usually require stitches (sutures) or john if it is deep. Minor cuts may be treated with a surgical tape closure orskin glue. Home care The following guidelines will help you care for your laceration at home: Extremity, face, or trunk wounds Keep the wound clean and dry. If a bandage was applied and it becomes wet or dirty, replace it. Otherwise, leave it in place for the first 24 hours. If stitches or john were used, clean the wound daily. After removing the bandage, wash the area with soap and water. Use a wet cotton swab to loosen and remove any blood or crust that forms. The doctor may prescribe an antibiotic cream or ointment to prevent infection. Do not stop taking this medication until you have finished the prescribed course or the doctor tells you to stop. The doctor may also prescribe medications for pain. Follow the doctors instructions for taking these medications. You may remove the bandage to shower as usual after the first 24 hours, but do not soak the area in water (no swimming) until the stitches or john are removed. If surgical tape was used, keep the area clean and dry. If it becomes wet, blot it dry with a towel. If skin glue was used, do not scratch, rub, or pick at the adhesive film. Do not place tape directly over the film. Do not apply liquid, ointment, or creams to the wound while the film is in place. Do not clean the wound with peroxide and do not apply ointments. Avoid activities that cause heavy sweating until the film has fallen off. Protect the wound from prolonged exposure to sunlight or tanning lamps. You may shower as usual but do not soak the wound in water (no baths or swimming). The film will fall off by itself in 510 days. Scalp wounds During the first two days, you may carefully rinse your hair in the shower to remove blood, glass or dirt particles. After two days, you may shower and shampoo your hair normally. Do not soak your scalp in the tub or go swimming until the stitches or john have been removed. Talk with your doctor before applying any antibiotic ointment to the wound. Mouth wounds Eat soft foods to reduce pain. If the cut is inside of your mouth, clean by rinsing after each meal and at bedtime with a mixture of equal parts water and hydrogen peroxide (do not swallow!). Or, you can use a cotton swab to directly apply hydrogen peroxide onto the cut. Mouth wounds can be painful when eating. You may use an [id number] local numbing solution for pain relief. If this is not available, you may use any numbing solution for teething babies. You may apply this directly to the sores with a cotton-tip swab or with your finger. Follow-up care Follow up with your health care provider. Most skin wounds heal within ten days. Mouth and facial wounds heal within five days. However, even with proper treatment, a wound infection may sometimes occur. Therefore, you should check the wound daily for signs of infection listed below. Stitches should be removed from the face within five days; stitches and john should be removed from other parts of the body within 714 days. If dissolving stitches were used in the mouth, these will fall out or dissolve without the need for removal. If tape closures were used, remove them yourself if they have not fallen off after 7 days. Ifskin glue was used, the film will fall off by itself in 510 days. When to seek medical care Get prompt medical attention if any of these occur: Bleeding not controlled by direct pressure Signs of infection, including increasing pain in the wound, increasing wound redness or swelling, or pus coming from the wound Fever of 100.4F (38C) or higher, or as directed by your health care provider Stitches or john come apart or fall out or surgical tape falls off before 7 days Wound edges re-open Hypertension, Out Of Control (Established) Your blood pressure was unusually high today. This can occur as a result of missing doses of your blood pressure medicine. Some asthma inhalers, decongestants, diet pills, and street drugs such as cocaine and amphetamine can worsen hypertension. An increase in body weight, increase in salt intake, smoking, and caffeine are other causes. Emotional upset or acute pain can cause a sudden rapid rise in blood pressure which may return to normal after a period of rest. A normal blood pressure is less than 140/90. The first (top) number is the systolic pressure. The second (bottom) number is the diastolic pressure. Hypertension exists when either the top number is 140 or higher, OR the bottom number is 90 or higher on repeated measurements. Home Care: All patients with high blood pressure should do the following to lower their pressure. If you are on blood pressure medicines, then these methods may reduce or eliminate your need for medicines in the future. Begin a weight-loss program if you are overweight. Reduce your salt intake. Avoid high-salt foods (olives, pickles, smoked meats, salted potato chips, etc.). Do not add salt to your food at the table. Use only small amounts of salt when cooking. Begin an exercise program. Discuss with your doctor what type of exercise program would be best for you. It doesnt have to be difficult. Even brisk walking for 20 minutes3 times a week is a good form of exercise. Avoid medicines which contain heart stimulants. This includes many cold and sinus decongestant pills and sprays as well as diet pills. Check the warnings about hypertension on the label. Stimulants such as amphetamine or cocaine could be lethal for someone with hypertension. Never take these. Limit your caffeine intake or switch to decaf. Stop smoking. If you are a long-time smoker, this can be hard. Enroll in a stop-smoking program to improve your chance of success. Talk to your physician about ways to improve your chance of success. Learning how to handle stress better is an important part of any program to lower blood pressure. Learn about relaxation methods such as meditation, yoga, or biofeedback. If medicines were prescribed, take them exactly as directed. Missing doses may cause your blood pressure to get out of control. Consider buying an automatic blood pressure machine (available at many pharmacies). Use this to monitor your blood pressure and report to your doctor. Follow Up: Regular visits to your own doctor for blood pressure checks and medicine adjustment is an important part of your care. Make a follow-up appointment as directed by our staff. Get Prompt Medical Attention if any of the following occur: Chest, arm, shoulder, neck, or upper back pain Shortness of breath Severe headache Throbbing or rushing sound in the ears Nosebleed Extreme drowsiness, confusion, or fainting Dizziness or vertigo (dizziness with spinning sensation) Weakness of an arm or leg or one side of the face Difficulty with speech or vision Bandage Change If the bandage becomes wet or dirty, replace it. Otherwise, leave it in place for the first 24 hours. Then once a day: After removing the bandage, wash the area with soap and water. Use a wet cotton swab to loosen and remove any blood or crust that forms on the wound. After cleaning, apply a thin layer of antibiotic ointment or cream. Reapply the bandage. You may shower as usual after the first 24 hours. If the bandage is on an arm or leg, cover it with a plastic bag rubber banded at both ends before showering. No tub baths or swimming until the bandage is removed and the wound healed (at least 7 days). You have been given the following additional information: Laceration, All Hypertension, Established, Out Of Control Dressing Change (Electronically signed by Jose Beth Dr. 08/19/2016 22:07)
--- NOTE | 2016-08-19 22:07 | ED MED RECONCILIATION SUMMARY ---
Patient: LILIAM MONTESINOS Medication Reconciliation Report [facility] VisitID: [id number] [address] [place] [address] 71y, M Registration Date/Time: 08/19/2016 Weight: 97.5 kg Height/Length: 68 in. BMI: 32.7 ALLERGIES: Bees, PCN The patient's Home Medications are listed below: CONTINUE TAKING THE FOLLOWING MEDICATIONS: Diltiazem HCl ER Oral (240 mg) 1 capsule, daily, out Glipizide Oral (5 mg) 1/2 tablet, daily Hydrocodone-Acetaminophen Oral, out Isosorbide Mononitrate ER Oral (60 mg) 1 tablet, daily Lisinopril Oral 20 mg, daily Metoprolol Tartrate Oral (50 mg) 1 tablet, bid, out Omeprazole Oral 20 mg, daily The source(s) of the original Home Medication information: patient The following Medications were given to the patient in the Emergency Department: TDAP [IM] IM 0.5 mL, administered: 08/19/2016 11:06:00 AM Lidocaine [Injection] Injection 2 %, administered: 08/19/2016 12:22:00 PM Lidocaine [Injection] Injection 2 %, administered: 08/19/2016 12:42:00 PM Hydralazine [IM] IM 20 mg, administered: 08/19/2016 1:02:00 PM The following Medications were prescribed to the patient: Hydralazine 10 mg: take 1 orally every 6 hours. Dispense thirty (30). One refill. -- Jose Beth Dr.
--- NOTE | 2016-08-19 22:07 | ED MED RECONCILIATION SUMMARY ---
Patient: LILIAM MONTESINOS Medication Reconciliation Report [facility] VisitID: [id number] [address] [place] [address] 71y, M Registration Date/Time: 08/19/2016 Weight: 97.5 kg Height/Length: 68 in. BMI: 32.7 ALLERGIES: Bees, PCN The patient's Home Medications are listed below: CONTINUE TAKING THE FOLLOWING MEDICATIONS: Diltiazem HCl ER Oral (240 mg) 1 capsule, daily, out Glipizide Oral (5 mg) 1/2 tablet, daily Hydrocodone-Acetaminophen Oral, out Isosorbide Mononitrate ER Oral (60 mg) 1 tablet, daily Lisinopril Oral 20 mg, daily Metoprolol Tartrate Oral (50 mg) 1 tablet, bid, out Omeprazole Oral 20 mg, daily The source(s) of the original Home Medication information: patient The following Medications were given to the patient in the Emergency Department: TDAP [IM] IM 0.5 mL, administered: 08/19/2016 11:06:00 AM Lidocaine [Injection] Injection 2 %, administered: 08/19/2016 12:22:00 PM Lidocaine [Injection] Injection 2 %, administered: 08/19/2016 12:42:00 PM Hydralazine [IM] IM 20 mg, administered: 08/19/2016 1:02:00 PM The following Medications were prescribed to the patient: Hydralazine 10 mg: take 1 orally every 6 hours. Dispense thirty (30). One refill. -- Jose Beth Dr.
--- NOTE | 2016-08-19 22:07 | ED MAR SUMMARY ---
..... Medication Administration Record [facility] [address] [place] [address] Patient: LILIAM MONTESINOS Visit ID: [id number] 71y, M Weight: 97.5 kg Height/Length: 68 in BMI: 32.7 ALLERGIES: Bees, PCN Given 11:06 08/19/2016 Khris Burns R.N. Medication Administered: TDAP [IM], Dose: 0.5 mL IM. Medication Ordered: Tdap IM 0.5 mL (NOW, per protocol). Given 12:22 08/19/2016 Khris Burns R.N. Medication Administered: LIDOCAINE [INJECTION], Dose: 2 % Injection. Medication Ordered: Lidocaine Injection 2 % (soln) (NOW). Given 12:42 08/19/2016 Khris Burns R.N. Medication Administered: LIDOCAINE [INJECTION], Dose: 2 % Injection. Medication Ordered: Lidocaine Injection 2 % (soln) (NOW). Given 13:02 08/19/2016 Khris Burns R.N. Medication Administered: HYDRALAZINE [IM], Dose: 20 mg IM. Medication Ordered: Hydralazine IM 20 mg (HIGH ALERT MEDICATION, NOW).
--- NOTE | 2016-08-19 22:07 | ED MAR SUMMARY ---
..... Medication Administration Record [facility] [address] [place] [address] Patient: LILIAM MONTESINOS Visit ID: [id number] 71y, M Weight: 97.5 kg Height/Length: 68 in BMI: 32.7 ALLERGIES: Bees, PCN Given 11:06 08/19/2016 Khris Burns R.N. Medication Administered: TDAP [IM], Dose: 0.5 mL IM. Medication Ordered: Tdap IM 0.5 mL (NOW, per protocol). Given 12:22 08/19/2016 Khris Burns R.N. Medication Administered: LIDOCAINE [INJECTION], Dose: 2 % Injection. Medication Ordered: Lidocaine Injection 2 % (soln) (NOW). Given 12:42 08/19/2016 Khris Burns R.N. Medication Administered: LIDOCAINE [INJECTION], Dose: 2 % Injection. Medication Ordered: Lidocaine Injection 2 % (soln) (NOW). Given 13:02 08/19/2016 Khris Burns R.N. Medication Administered: HYDRALAZINE [IM], Dose: 20 mg IM. Medication Ordered: Hydralazine IM 20 mg (HIGH ALERT MEDICATION, NOW).
== END 2016-08-19 13:48 | disposition home or self-care (01) ==
LOC: ED SRH 10:45
DX: S81.012A Laceration without foreign body, left knee, initial encounter (principal); I10 Essential (primary) hypertension; W29.3XXA Contact with powered garden and outdoor hand tools and machinery, initial encounter; Y92.009 Unspecified place in unspecified non-institutional (private) residence as the place of occurrence of the external cause; Y93.89 Activity, other specified; Y99.9 Unspecified external cause status; E11.9 Type 2 diabetes mellitus without complications; Z88.0 Allergy status to penicillin; Z91.030 Bee allergy status; Z79.84 Long term (current) use of oral hypoglycemic drugs